=== PATIENT | female | born 1960 | race Two or more races ===

== ENCOUNTER 2016-12-26 08:23 | Inpatient (IN) | payer SELFPAY ==
[~2016-12-26] VITALS: Ht 160 cm; Wt 82.7 kg
--- NOTE | 2016-12-26 08:52 | PHYS DOC ---
Adult General Chief Complaint Chief Complaint: [facility] H[facility] Patient is a 56 year old Indonesian only speaking female presenting to the emergency department for evaluation of multiple complaints including headache and dizziness fatigue nausea vomiting. Nurse and family speaks Indonesian so I offered a language line per diem interpreter but patient was comfortably using the nurse to translate. Patient says that the pain started yesterday morning when she woke up and has gradually increased throughout yesterday and she had the pain all last night as well. She describes the pain as pounding and starts in the front of her head and goes back to her occipital region and has been constant and Advil [id number] has not helped. She has had several episodes of nonbloody nonbilious emesis and constant nausea. She says that she feels the room spinning but she is able to ambulate okay in the emergency department to an and from the bathroom. Patient reports that she gets frequent headaches but has never seen a doctor and been diagnosed with a headache disorder. She denies any unilateral weakness numbness tingling vision changes or difficulty speaking. Patient is in no obvious distress with normal vital signs. Review of Systems Review of Systems Constitutional: Denies fever or chills [] Eyes: Denies change in visual acuity, redness, or eye pain [] Respiratory: Denies cough or shortness of breath [] Cardiovascular: No additional information not addressed in HPI [] GI: Denies abdominal pain. + nausea, vomiting. No bloody stools or diarrhea [] : Denies dysuria or hematuria [] Musculoskeletal: Denies back pain or joint pain [] Integument: Denies rash or skin lesions [] Neurologic: + headache. No focal weakness. + dizziness sensory changes [] Current Medications Current Medications Current Medications Medications (Trade) Dose Ordered Sig/Rocky Start Time Stop Time Status Last Admin Dose Admin Diphenhydramine HCl (Benadryl) 25 mg 1X ONCE 12/26/16 09:30 12/26/16 09:31 DC 12/26/16 09:45 25 MG Ketorolac Tromethamine (Toradol) 30 mg 1X ONCE 12/26/16 09:30 12/26/16 09:31 DC 12/26/16 09:43 30 MG Meclizine HCl (Antivert) 25 mg 1X ONCE 12/26/16 09:00 12/26/16 09:13 DC 12/26/16 09:48 25 MG Prochlorperazine Edisylate (Compazine) 10 mg 1X ONCE 12/26/16 09:30 12/26/16 09:31 DC 12/26/16 09:46 10 MG Sodium Chloride 1,000 ml @ 1,000 mls/hr 1X ONCE 12/26/16 10:15 12/26/16 11:14 DC 12/26/16 10:44 1,000 MLS/HR Allergies Allergies Allergies Coded Allergies Type Severity Reaction Last Updated Verified No Known Drug Allergies 12/26/16 No Physical Exam Physical Exam Constitutional: Well developed, well nourished, no acute distress, non-toxic appearance. [] HENT: Normocephalic, atraumatic, bilateral external ears normal, oropharynx moist, no oral exudates, nose normal. [] Eyes: PERRLA, EOMI, conjunctiva normal, no discharge. [] Neck: Normal range of motion, no tenderness, supple, no stridor. [] Cardiovascular:Heart rate regular rhythm, no murmur [] Lungs & Thorax: Bilateral breath sounds clear to auscultation [] Abdomen: Bowel sounds normal, soft, no tenderness, no masses, no pulsatile masses. [] Skin: Warm, dry, no erythema, no rash. [] Back: No tenderness, no CVA tenderness. [] Extremities: No tenderness, no cyanosis, no clubbing, ROM intact, no edema. [] Neurologic: Alert and oriented X 3, normal motor function, normal sensory function, no focal deficits noted. [] Current Patient Data Vital Signs Vital Signs Date Time Temp Pulse Resp B/P (MAP) Pulse Ox O2 Delivery O2 Flow Rate FiO2 12/26/16 10:16 101 25 144/97 (113) 92 Room Air 12/26/16 08:52 99.2 99.2 Lab Values Laboratory Tests Test 12/26/16 09:30 12/26/16 09:45 12/26/16 09:50 Erythrocyte Sedimentation Rate 32 (0-25) H Lactic Acid Level 1.3 mmol/L (0.4-2.0) C-Reactive Protein, Quantitative 279.8 mg/L (0-3.3) H Urine Collection Type Unknown Urine Color Anila Urine Clarity Clear Urine pH 5.5 Urine Specific [place] 1.025 Urine Protein 100 mg/dL (NEG-TRACE) Urine Glucose (UA) Negative mg/dL (NEG) Urine Ketones (Stick) Trace mg/dL (NEG) Urine Blood Large (NEG) Urine Nitrite Negative (NEG) Urine Bilirubin Small (NEG) Urine Urobilinogen Dipstick 0.2 mg/dL (0.2 mg/dL) Urine Leukocyte Esterase Negative (NEG) Urine RBC 6-10 /HPF (0-2) Urine WBC 1-4 /HPF (0-4) Urine Squamous Epithelial Cells Mod /LPF Urine Bacteria Few /HPF (0-FEW) Urine Mucus Mod /LPF Urine Test Negative (NEG) Urine Opiates Screen Neg (NEG) Urine Methadone Screen Neg (NEG) Urine Barbiturates Neg (NEG) Urine Phencyclidine Screen Neg (NEG) Urine Amphetamine/Methamphetamine Neg (NEG) Urine Benzodiazepines Screen Neg (NEG) Urine Cocaine Screen Neg (NEG) Urine Cannabinoids Screen Neg (NEG) Urine Ethyl Alcohol Neg (NEG) White Blood Count 16.9 x10^3/uL (4.0-11.0) H Red Blood Count 5.21 x10^6/uL (3.50-5.40) Hemoglobin 14.5 g/dL (12.0-15.5) Hematocrit 42.3 % (36.0-47.0) Mean Corpuscular Volume 81 fL (79-100) Mean Corpuscular Hemoglobin 28 pg (25-35) Mean Corpuscular Hemoglobin Concent 34 g/dL (31-37) Red Cell Distribution Width 14.2 % (11.5-14.5) Platelet Count 295 x10^3/uL (140-400) Neutrophils (%) (Auto) 84 % (31-73) H Lymphocytes (%) (Auto) 10 % (24-48) L Monocytes (%) (Auto) 6 % (0-9) Eosinophils (%) (Auto) 0 % (0-3) Basophils (%) (Auto) 0 % (0-3) Neutrophils # (Auto) 14.2 x10^3uL (1.8-7.7) H Lymphocytes # (Auto) 1.7 x10^3/uL (1.0-4.8) Monocytes # (Auto) 1.0 x10^3/uL (0.0-1.1) Eosinophils # (Auto) 0.0 x10^3/uL (0.0-0.7) Basophils # (Auto) 0.1 x10^3/uL (0.0-0.2) Prothrombin Time 14.4 SEC (11.7-14.0) H Prothrombin Time INR 1.2 (0.8-1.1) H PTT 31 SEC (24-38) Sodium Level 134 mmol/L (136-145) L Potassium Level 3.1 mmol/L (3.5-5.1) L Chloride Level 94 mmol/L (98-107) L Carbon Dioxide Level 31 mmol/L (21-32) Anion Gap 9 (6-14) Blood Urea Nitrogen 14 mg/dL (7-20) Creatinine 1.0 mg/dL (0.6-1.0) Estimated GFR (Cockcroft-Gault) 57.8 BUN/Creatinine Ratio 14 (6-20) Glucose Level 103 mg/dL (70-99) H Calcium Level 8.1 mg/dL (8.5-10.1) L Magnesium Level 2.4 mg/dL (1.8-2.4) Total Bilirubin 0.7 mg/dL (0.2-1.0) Aspartate Amino Transferase (AST) 21 U/L (15-37) Alanine Aminotransferase (ALT) 27 U/L (14-59) Alkaline Phosphatase 108 U/L (46-116) Creatine Kinase 136 U/L (26-192) Troponin I Quantitative 0.074 ng/mL (0.000-0.055) QY-Nhh-M-Type Natriuretic Peptide 747 pg/mL (0-124) H Total Protein 7.5 g/dL (6.4-8.2) Albumin 3.3 g/dL (3.4-5.0) L Albumin/Globulin Ratio 0.8 (1.0-1.7) L Thyroid Stimulating Hormone (TSH) 2.545 uIU/mL (0.358-3.74) Salicylates Level < 2.8 mg/dL (2.8-20.0) L Salicylate Last Dose Date Unknown Salicylate Last Dose Time Unknown Acetaminophen Level < 2 mcg/ml (10-30) L Acetaminophen Last Dose Date Unknown Acetaminophen Last Dose Time Unknown Ethyl Alcohol Level < 10 mg/dL (0-10) Laboratory Tests 12/26/16 09:50 Laboratory Tests 12/26/16 09:50 EKG EKG Sinus tachycardia at 104 beats per minutes with leftward axis no obvious ST elevation or depression and normal T waves. Radiology/Procedures Radiology/Procedures EXAM: CT head without contrast. HISTORY: Headache, dizziness. TECHNIQUE: Computed tomography of the head was performed without intravenous contrast. COMPARISON: None. FINDINGS: There is no intracranial hemorrhage. Mild hypoattenuation within the periventricular white matter indicates mild chronic small vessel ischemic change. The ventricles are normal in size and position. The visualized paranasal sinuses appear clear. The orbits are unremarkable. The temporal bones are unremarkable. The calvarium reveals no suspicious lesions. IMPRESSION: 1. No acute intracranial findings. *One or more of the following individualized dose reduction techniques were utilized for this examination: 1. Automated exposure control. 2. Adjustment of the mA and/or kV according to patient size. 3. Use of iterative reconstruction technique. DICTATED and SIGNED BY: EKTA BELLE MD DATE: 12/26/16930 Impressions: Indication: Suspected meningitis Consent: Consent was obtained Procedure: The patient was placed in the sitting forward position and the appropriate landmarks were identified. The area was prepped and draped in the usual sterile fashion. Anesthesia was obtained using 4 mL of 1% lidocaine. A spinal needle was inserted at the L3-L4. Opening pressure was not obtained]. The stylet was then replaced and the needle was withdrawn. A sterile dressing was placed over the site and the patient was placed in the supine position. The patient tolerated the procedure well. Complications: none. Course & Med Decision Making Course & Med Decision Making She does not appear to be in severe distress as she is interactive and laughs during some of the conversation. Given language barrier and multitude of symptoms she will get workup have symptoms treated and then be reassessed. Patient was diaphoretic and her temperature was retaken and it was 99.9. The need to be tachycardic and she had leukocytosis with neutrophilic predominance. An LP was done which revealed no signs of meningitis however given she meets sepsis criteria and appears moderately ill she is admitted for IV antibiotics neurology and cardiology consultation. Patient aware and agreeable with plan. Dragon Disclaimer Dragon Disclaimer This electronic medical record was generated, in whole or in part, using a voice recognition dictation system. Departure Departure Impression: Primary Impression: Sepsis Additional Impressions: Headache Elevated C-reactive protein Elevated troponin I level Disposition: 09 ADMITTED INPATIENT Admitting Physician: Joann Galeano Condition: STABLE Referrals: NO PCP (PCP) Problem Qualifiers YASEMIN FARRAR DO Dec 26, 2016 08:52
[2016-12-26] MEDS ORDERED: MECLIZINE HCL 12.5 MG TABLET. PO ONE (09:00)
[2016-12-26] MEDS ORDERED: PROCHLORPERAZINE 10 MG/2 ML VIAL. IV ONE (09:30)
[2016-12-26] MEDS ORDERED: diphenhydrAMINE 50 MG/ML VIAL IVP ONE (09:30)
[2016-12-26] MEDS ORDERED: KETOROLAC TROMETHAMINE 30 MG/ML INJ. IV ONE (09:30)
--- NOTE | 2016-12-26 09:37 | RAD ---
EXAM: CT head without contrast. HISTORY: Headache, dizziness. TECHNIQUE: Computed tomography of the head was performed without intravenous contrast. COMPARISON: None. FINDINGS: There is no intracranial hemorrhage. Mild hypoattenuation within the periventricular white matter indicates mild chronic small vessel ischemic change. The ventricles are normal in size and position. The visualized paranasal sinuses appear clear. The orbits are unremarkable. The temporal bones are unremarkable. The calvarium reveals no suspicious lesions. IMPRESSION: 1. No acute intracranial findings. *One or more of the following individualized dose reduction techniques were utilized for this examination: 1. Automated exposure control. 2. Adjustment of the mA and/or kV according to patient size. 3. Use of iterative reconstruction technique.
[2016-12-26 10:03] LABS: BENZODIAZEPINES NEG (NEG); CANNABINOIDS NEG (NEG); COCAINE NEG (NEG); METHADONE NEG (NEG); OPIATES NEG (NEG); PHENCYCLIDINE NEG (NEG)
[2016-12-26 10:08] LABS: BASO # 0.1 x10^3/uL (0.0-0.2); BASO % 0 % (0-3); EOS % 0 % (0-3); HEMATOCRIT 42.3 % (36.0-47.0); HEMOGLOBIN 14.5 g/dL (12.0-15.5); LYMPH # 1.7 x10^3/uL (1.0-4.8); LYMPH % 10 % (24-48); MEAN CORPUSCULAR HEMOGLOBIN 28 pg (25-35); MEAN CORPUSCULAR HGB CONC 34 g/dL (31-37); MEAN CORPUSCULAR VOLUME 81 fL (79-100); MONO % 6 % (0-9); NEUT % 84 % (31-73); PLATELET COUNT 295 x10^3/uL (140-400); RED BLOOD COUNT 5.21 x10^6/uL (3.50-5.40); RED CELL DISTRIBUTION WIDTH 14.2 % (11.5-14.5); WHITE BLOOD COUNT 16.9 x10^3/uL (4.0-11.0)
[2016-12-26 10:09] LABS: BILIRUBIN,URINE SMALL (NEG); GLUCOSE,URINE NEGATIVE (NEG); NITRITE,URINE NEGATIVE (NEG); PH,URINE 5.5; PROTEIN,URINE 100 mg/dL (NEG-TRACE); UROBILINOGEN,URINE 0.2 mg/dL (0.2 mg/dL)
[2016-12-26 10:11] LABS: BARBITURATES NEG (NEG)
[2016-12-26] MEDS ORDERED: IV NORMAL SALINE 1000ML BAG 1,000 ML IV ONE ×2 (10:15→10:45)
[2016-12-26 10:17] LABS: CALCIUM 8.1 mg/dL (8.5-10.1); GFR 57.8; POTASSIUM 3.1 mmol/L (3.5-5.1)
[2016-12-26 10:18] LABS: INR 1.2 (0.8-1.1); PROTHROMBIN TIME PATIENT 14.4 SEC (11.7-14.0)
[2016-12-26 10:19] LABS: ETHANOL < 10 mg/dL (0-10)
[2016-12-26 10:20] LABS: NEG OBC UR NEG; POS OBC UR POS
[2016-12-26 10:23] LABS: ALBUMIN 3.3 g/dL (3.4-5.0); ALBUMIN/GLOBULIN RATIO 0.8 (1.0-1.7); MAGNESIUM 2.4 mg/dL (1.8-2.4); TOTAL BILIRUBIN 0.7 mg/dL (0.2-1.0); TOTAL PROTEIN 7.5 g/dL (6.4-8.2)
[2016-12-26 10:24] LABS: BACTERIA,URINE FEW /HPF (0-FEW); SQUAMOUS EPITHELIAL CELL,UR MOD /LPF
[2016-12-26] MEDS ORDERED: POTASSIUM CHLORIDE 20 MEQ TABLET.ER. PO ONE ×2 (10:30→14:00)
[2016-12-26] MEDS ORDERED: MIDAZOLAM HCL/PF 2 MG/2 ML VIAL. IV ONE (10:45)
[2016-12-26] MEDS ORDERED: ASPIRIN ENTERIC COATED 325 MG TABLET.DR. PO ONE (10:45)
[2016-12-26] MEDS ORDERED: VANCOMYCIN 1.25 GM in IV NORMAL SALINE 250ML 250 ML IV ONE (10:45)
[2016-12-26] MEDS ORDERED: VANCOMYCIN 1.75 GM in IV NORMAL SALINE 500ML BAG 500 ML IV ONE (11:00)
[2016-12-26] MEDS ORDERED: fentaNYL PF VIAL 100 MCG/2 ML VIAL IV PRN (11:15)
[2016-12-26] MEDS ORDERED: ONDANSETRON PF 4 MG/2 ML VIAL. IV PRN ×2 (11:15→15:30)
[2016-12-26 11:42] LABS: CSF PROTEIN 32.3 mg/dL (15.0-45.0)
[2016-12-26 12:02] LABS: CSF CLARITY CLEAR; CSF COLOR COLORLESS
--- NOTE | 2016-12-26 12:18 | ACF ---
Admit Criteria Forms Admit Criteria Forms Admit Criteria Forms SEVERE SEPSIS Clinical Indications for Admission to Inpatient Care (Place 'X' for any and all applicable criteria): Hospital admission is needed for appropriate care of the patient because of ANY ONE of the following: [X]I. Hemodynamic instability indicated by ANY ONE of the following(1)(2)(3)( 4)(5): [X]a. Vital sign abnormality not readily corrected by appropriate treatment within 12 to 24 hours indicated by ANY ONE of the following: [X]i) Tachycardia that persists despite appropriate treatment []ii) Hypotension that persists despite appropriate treatment []iii) Orthostatic vital sign changes that persist despite appropriate treatment []b. Vital sign abnormality that is severe indicated by ANY ONE of the following: []i. Inadequate perfusion indicated by ANY ONE of the following: []1) Lactic acidosis (greater than 2 mmol/L) []2) New abnormal capillary refill (greater than 3 seconds) []3) Reduced urine output []4) New altered mental status []5) Myocardial Ischemia []ii. Mean arterial pressure [A] less than 60 mm Hg []iii. Mean arterial pressure[A] less than 70 mm Hg after 30 minutes of appropriate treatment (eg, fluid resuscitation) []iv. Sustained heart rate greater than 120 beats per minute in adult []v. IV inotropic or vasopressor medication required to maintain adequate blood pressure or perfusion [X]II. Systemic or infectious condition causing severe symptoms or findings not responsive to emergency or observation care treatment (as appropriate) indicated by ANY ONE of the following: []a. Cardiac arrhythmias of immediate concern(1)(2)(3) []b. Severe endocrine disorder (eg, thyrotoxicosis, adrenal insufficiency)(4)(5) []c. Seizures (eg, new or recurrent)(6) []d. New-onset end organ failure or dysfunction as indicated by ANY ONE of the following: []i. Acute unexplained hypoxemia (eg, not from lung infection or chronic disease)(7)(8)(9) []ii. Acute renal failure as indicated by new onset of ANY ONE of the following(10)(11)(12)(13)(14): []1) 3-fold rise in serum creatinine from baseline []2) Serum creatinine greater than 4 mg/dL (354 micromoles/L) with acute rise greater than 0.5 mg/dL (44.2 micromoles/L) []3) Reduction of more than 75% in estimated glomerular filtration rate from baseline. []4) Estimated glomerular filtration rate less than 35 mL/min/1.73m2 ( 0.59 mL/sec/1.73m2) in child younger than 18 years. []5) Cessation of urine output indicated by ALL of the following: []A. Adequate volume status []B. Inadequate urine output as indicated by ANY ONE of the following: []a. Urine output less than 0.3 mL/kg/hr for 24 hours []b. Anuria (urine output less than 0.1 mL/kg/hr) for 12 hours []iii. Acute mental status changes(15) []iv. Acute hepatic failure (eg, plasma bilirubin greater than 4 mg/ dL (68 micromoles/L), new INR greater than 2.0)(16)(17) [X]e. Unmanageable nausea and vomiting(18) []f. New-onset or uncontrolled central diabetes insipidus(19)(20) []g. Clinically significant dehydration(18)(21) []h. Hypoglycemia(22) []i. Acidosis (pH less than 7.35) or alkalosis (pH greater than 7.45)( 22)(23) []j. Toxic drug level that indicates need for specific monitoring or treatment(24)(25) []k. Severe electrolyte abnormalities indicated by ALL of the following( 1)(2)(3): []i. Electrolytes and associated findings are not as expected for patient baseline or acceptable treatment effects. []ii. Severe abnormalities indicated by ANY ONE of the following: []1) Sodium less than 130 mEq/L (mmol/L) (new) []2) Sodium less than 135 mEq/L (mmol/L) with ANY ONE of the following: []A. Uncorrectable (to near normal or chronic baseline) after trial of outpatient and emergency treatment []B. Altered mental status []C. Seizures []D. Severe medical etiology requiring inpatient management (eg , heart failure, hypovolemia) []3) Sodium greater than 155 mEq/L (mmol/L) []4) Sodium greater than 150 mEq/L (mmol/L) with ANY ONE of the following: []A. Uncorrectable (to near normal or chronic baseline) with outpatient and emergency treatment []B. Altered mental status []C. Seizures []D. Severe medical etiology (eg, hypovolemia, diabetes insipidus) []5) Potassium less than 2.5 mEq/L (mmol/L) despite outpatient and emergency treatment []6) Potassium less than 3 mEq/L (mmol/L) with ANY ONE of the following : []A. Weakness []B. Cardiac abnormality (eg, arrhythmia, conduction disturbance ) []C. Cardiac ischemia []D. Ileus []E. Ongoing medical cause requiring inpatient management (eg, acute renal wasting or SIADH) []F. Other severe symptoms []7) Potassium greater than 6.5 mEq/L (mmol/L) []8) Potassium greater than 5 mEq/L (mmol/L) with ANY ONE of the following: []A. Uncorrectable (to near normal or chronic baseline) with outpatient and emergency treatment []B. Severe ECG findings[A] []C. Acute worsening of renal failure (creatinine greater than 2.5 mg/dL (221 micromoles/L) or significant elevation for age and size) []D. Severe weakness []E. Severe medical etiology (eg, hemolysis, infection, drug overdose) []9) Calcium less than 7 mg/dL (1.75 mmol/L) despite outpatient and emergency treatment(5) []10) Calcium less than 8 mg/dL (2 mmol/L) with significant symptoms or findings (eg, altered mental status, muscle spasms, seizures, breathing difficulty, cardiac abnormality (eg, arrhythmia or conduction disturbance))(5) []11) Calcium greater than 14 mg/dL (3.5 mmol/L)(5) []12) Calcium greater than 12 mg/dL (3 mmol/L) with ANY ONE of the following(5): []A. Uncorrectable (to near normal or chronic baseline) with outpatient and emergency treatment []B. Significant dehydration or hypovolemia as indicated by ALL of the following(3)(6)(7): []a. Not resolved with initial treatments []b. Clinically significant dehydration as indicated by ANY ONE of the following: [](1) Vomiting refractory to outpatient treatment (ie, precluding oral rehydration) [](2) Inability to drink [](3) Hypernatremia or other electrolyte abnormality unable to be corrected with outpatient and emergency treatment [](4) Failure to remain hydrated with outpatient therapy [](5) Reduced urine output [](6) Hypotension [](7) Serious cause for dehydration requiring acute hospitalization ( eg, bowel obstruction, increased intracranial pressure, infectious cause) [](8) Child with ANY ONE of the following(8): [](i) Severe abdominal tenderness [](ii) Adequate care not available at home [](iii) Severe dehydration (greater than 9% loss of body weight) []C. Significant symptoms or findings (eg, altered mental status , cardiac abnormality (eg, arrhythmia, conduction disturbance), malignant etiology requiring inpatient treatment) []13) Phosphorus less than 1 mg/dL (0.32 mmol/L) []14) Phosphorus less than 1.5 mg/dL (0.48 mmol/L) with ANY ONE of the following: []A. Patient unresponsive to outpatient and emergency treatment []B. Significant symptoms or findings (eg, weakness, altered mental status, breathing difficulty, seizures, rhabdomyolysis) []15) Phosphorus greater than 10 mg/dL (3.2 mmol/L) []16) Phosphorus greater than 4.5 mg/dL (1.45 mmol/L) (new) with ANY ONE of the following: []A. Severe medical etiology (eg, crush injury, acute renal failure) []B. Associated hypocalcemia with significant findings (eg, neurologic symptoms, altered mental status, muscle spasms, seizures, breathing difficulty, cardiac abnormality (eg, arrhythmia, conduction disturbance)) []16) Magnesium less than 1 mg/dL (0.41 mmol/L) []17) Magnesium less than 1.5 mg/dL (0.62 mmol/L) with ANY ONE of the following: []A. Patient unresponsive to outpatient and emergency treatment []B. Associated hypocalcemia with significant findings (eg, altered mental status, muscle spasms, seizures, breathing difficulty, cardiac abnormality (eg, arrhythmia, conduction disturbance)) []C. Associated hypokalemia (potassium less than 3 mEq/L (mmol/L )) with risk of arrhythmia []18) Magnesium greater than 4 mEq/L (2 mmol/L) []19) Magnesium greater than 2.5 mEq/L (1.25 mmol/L) with significant symptoms or findings (eg, weakness, altered mental status, cardiac abnormality (eg, arrhythmia, conduction disturbance), breathing difficulty, severe medical etiology (eg, renal failure, hypovolemia)) []20) Uric acid greater than 20 mg/dL (1190 micromoles/L)(9) []21) Uric acid greater than 8 mg/dL (476 micromoles/L) with significant symptoms or findings of tumor lysis syndrome (eg, creatinine greater than 1.5 times upper limit of normal, cardiac abnormality (eg , arrhythmia, conduction disturbance), seizure)(9) []III. High fever or other high-risk infection situation as indicated by ANY ONE of the following(26)(27)(28): []a. Outpatient and observation care antimicrobial treatment unavailable, not effective, or not appropriate []b. Documented bacteremia []c. Temperature greater than 104.9 degrees F (40.5 degrees C) (oral) []d. Temperature greater than 103.1 degrees F (39.5 degrees C) (oral) or less than 96.8 degrees F (36 degrees C) (rectal) that does not respond to emergency treatment and observation care [X]IV. High-risk febrile neutropenia[A] as indicated by ANY ONE of the following(29)(30)(31)(32): []a. Profound neutropenia[B] anticipated to extend for more than 7 days []b. Hemodynamic instability []c. Hypoxemia [X]d. Tachypnea []e. Altered mental status []f. New-onset abdominal pain []g. New-onset vomiting or diarrhea []h. Oral or gastrointestinal mucositis that interferes with swallowing or causes severe diarrhea []i. Focal infection (eg, cellulitis, pneumonia, central line or catheter infection, perirectal abscess) []j. Renal insufficiency (eg, GFR of less than 30 mL/min/1.73m2 (0.5 mL/sec /1.73m2)). []k. Severe liver dysfunction (transaminase levels greater than 5 times normal) []l. Platelet count less than 50,000/mm3 (50 x109/L)(33) []m. Leukemia or lymphoma induction therapy []n. Leukemia not in complete remission or with evidence of disease progression []o. Bone marrow transplant patient []p. Alemtuzumab being used for therapy []q. [employer]in[employer] Association for Supportive Care in Cancer (MASCC) Risk Index score of less than 21[C](33)(35). []V. Isolation required (eg, tuberculosis that requires isolation, Ebola infection)[D](36)(37)(38)(39)(40) []. Gangrene that requires treatment beyond emergency or observation level care(41)(42) []VII. Antitoxin administration and ongoing observation required (eg, tetanus, botulism)(43)(44) []. Suspected infection with rapid progression or severe symptoms as indicated by ANY ONE of the following(45): []a. Streptococcal or staphylococcal toxic shock(46) []b. Diphtheria(47) []c. Hantavirus(48) []d. Severe acute respiratory syndrome(8)(49) []e. Anthrax(50) []f. Ebola[D](36)(37)(38) []g. Necrotizing soft tissue infection(41)(42) []h. Plague(50) []i. Other suspected infection that requires care beyond emergency or observation level care []VII. Severe adverse drug or systemic toxin reaction as indicated by ANY ONE of the following(24): []a. Serotonin syndrome(51)(52) []b. Neuroleptic malignant syndrome(51)(52) []c. Cholinergic syndrome with severe symptoms (eg, bronchorrhea, weakness , mental status changes, seizures)(53) []d. Anticholinergic syndrome []e. Sympathetic syndrome with severe symptoms (eg, seizures, mental status changes, cardiac dysrhythmias) []f. Other severe adverse drug or systemic toxin reaction that remains after emergency or observation level care (as appropriate) []VIII. Allergic reaction with severe symptoms (not responsive to emergency or observation care treatment as appropriate), including ANY ONE of the following(54): []a. Airway edema (pharyngeal, epiglottic, or laryngeal edema) []b. Stridor []c. Respiratory failure []d. Bronchospasm []e. Hypotension []IX. Environmental emergency (not responsive to emergency or observation care treatment as appropriate) as indicated by ANY ONE of the following(55)(56): []a. Hyperthermia []b. Heat stroke []c. Heat exhaustion []d. Hypothermia (temperature less than 95 degrees F (35 degrees C) rectal) (57) []e. Electrocution(58) []X. Complications of transplanted organ (ie, not covered elsewhere)[E] indicated by ANY ONE of the following(59): []a. Acute graft rejection (or graft vs. host disease)[F] requiring inpatient management (eg, intravenous immunosuppression)(60)(61)(62)( 63) []b. Acute failure of transplanted organ necessitating inpatient care (eg, cannot be managed in other setting) []c. Infection requiring inpatient management (eg, Hemodynamic instability, need for intravenous antimicrobial treatment)(64)(65) []d. Other complication of transplanted organ requiring inpatient management []XI. Systemic or Infectious Condition condition, symptom, or finding for which emergency and observation care have failed or are not considered appropriate. See General Criteria: Observation Care, General Admission Criteria or Pediatric General Admission Criteria guideline as appropriate. (Contents from SEVERE SEPSIS and SYSTEMIC OR INFECTIOUS CONDITION clinical indications for admission to inpatient care have been integrated in this form) The original [facility] content created by [facility] has been revised. The portions of the content which have been revised are identified through the use of italic text or in bold and [facility] has neither reviewed nor approved the modified material. All other unmodified content is copyright [facility]. Please see references footnoted in the original [facility] edition 2016 WIL CARPIO Dec 26, 2016 12:18
[2016-12-26 13:28] VITALS: BP 113/71
--- NOTE | 2016-12-26 13:40 | PDOC2 ---
BOUBACAR ISLAS IMAGE EDITOR 12/26/16 1340: CARDIAC CONSULT DATE OF CONSULT Date of Consult DATE: 12/26/16 TIME: 13:40 REASON FOR CONSULT Reason for Consult: elevated troponin REFERRING PHYSICIAN Referring Physician: Dr. Derrell Yang SOURCE Source: Chart review, Patient (speaks Latvian) HISTORY OF PRESENT ILLNESS HISTORY OF PRESENT ILLNESS 56 year old female admitted through the ER with a 2 year history of headaches and today associated with dizziness, fatigue, nausea and vomiting. Hypokalemia POA. Troponin level of 0.074. No EKG for review. PAST MEDICAL HISTORY CENTRAL NERVOUS SYSTEM: Other (headaches) PAST SURGICAL HISTORY Past Surgical History: FAMILY HISTORY Family History: Family History Unknown SOCIAL HISTORY Smoke: No ALCOHOL: none Drugs: None CURRENT MEDICATIONS CURRENT MEDICATIONS Current Medications Medications (Trade) Dose Ordered Sig/[place] PRN Reason Start Time Stop Time Status Last Admin Dose Admin Meclizine HCl (Antivert) 25 mg 1X ONCE PO 12/26/16 09:00 12/26/16 09:13 DC 12/26/16 09:48 Diphenhydramine HCl (Benadryl) 25 mg 1X ONCE IVP 12/26/16 09:30 12/26/16 09:31 DC 12/26/16 09:45 Ketorolac Tromethamine (Toradol) 30 mg 1X ONCE IV 12/26/16 09:30 12/26/16 09:31 DC 12/26/16 09:43 Prochlorperazine Edisylate (Compazine) 10 mg 1X ONCE IV 12/26/16 09:30 12/26/16 09:31 DC 12/26/16 09:46 Sodium Chloride 1,000 ml @ 1,000 mls/hr 1X ONCE IV 12/26/16 10:15 12/26/16 11:14 DC 12/26/16 10:44 Potassium Chloride (Klor-Con) 40 meq 1X ONCE PO 12/26/16 10:30 12/26/16 10:31 DC 12/26/16 12:00 Ceftriaxone Sodium 2 gm/ Sodium Chloride 100 ml @ 200 mls/hr 1X ONCE IV 12/26/16 10:45 12/26/16 11:14 DC 12/26/16 10:44 Aspirin (Ecotrin) 325 mg 1X ONCE PO 12/26/16 10:45 12/26/16 10:46 DC 12/26/16 11:59 Midazolam HCl (Versed) 2 mg 1X ONCE IV 12/26/16 10:45 12/26/16 10:46 DC 12/26/16 11:01 Sodium Chloride 1,000 ml @ 1,000 mls/hr 1X ONCE IV 12/26/16 10:45 12/26/16 11:44 DC 12/26/16 12:09 Vancomycin HCl 1.75 gm/Sodium Chloride 500 ml @ 250 mls/hr 1X ONCE IV 12/26/16 11:00 12/26/16 12:59 DC 12/26/16 12:02 ALLERGIES ALLERGIES: Coded Allergies: No Known Drug Allergies (Unverified , 12/26/16) ROS Review of System see HPI PHYSICAL EXAM General: Alert, Cooperative, No acute distress HEENT: Atraumatic, PERRLA Lungs: Clear to auscultation Heart: Regular rate, Normal S1, Normal S2, No murmurs Abdomen: Normal bowel sounds, Soft Extremities: No edema, Normal pulses Skin: No rashes Neuro: Normal speech Psych/Mental Status: Mental status NL MUSCULOSKELETAL: No deformity VITALS VITALS Vital Signs Date Time Temp Pulse Resp B/P (MAP) Pulse Ox O2 Delivery O2 Flow Rate FiO2 12/26/16 13:28 98.9 84 18 113/71 (85) 97 Room Air 98.9 12/26/16 12:16 2.0 LABS Lab: Laboratory Tests Test 12/26/16 09:30 12/26/16 09:45 12/26/16 09:50 12/26/16 11:15 Erythrocyte Sedimentation Rate 32 (0-25) Lactic Acid Level 1.3 mmol/L (0.4-2.0) C-Reactive Protein, Quantitative 279.8 mg/L (0-3.3) Urine Collection Type Unknown Urine Color Anila Urine Clarity Clear Urine pH 5.5 Urine Specific [place] 1.025 Urine Protein 100 mg/dL (NEG-TRACE) Urine Glucose (UA) Negative mg/dL (NEG) Urine Ketones (Stick) Trace mg/dL (NEG) Urine Blood Large (NEG) Urine Nitrite Negative (NEG) Urine Bilirubin Small (NEG) Urine Urobilinogen Dipstick 0.2 mg/dL (0.2 mg/dL) Urine Leukocyte Esterase Negative (NEG) Urine RBC 6-10 /HPF (0-2) Urine WBC 1-4 /HPF (0-4) Urine Squamous Epithelial Cells Mod /LPF Urine Bacteria Few /HPF (0-FEW) Urine Mucus Mod /LPF Urine Test Negative (NEG) Urine Opiates Screen Neg (NEG) Urine Methadone Screen Neg (NEG) Urine Barbiturates Neg (NEG) Urine Phencyclidine Screen Neg (NEG) Urine Amphetamine/Methamphetamine Neg (NEG) Urine Benzodiazepines Screen Neg (NEG) Urine Cocaine Screen Neg (NEG) Urine Cannabinoids Screen Neg (NEG) Urine Ethyl Alcohol Neg (NEG) White Blood Count 16.9 x10^3/uL (4.0-11.0) Red Blood Count 5.21 x10^6/uL (3.50-5.40) Hemoglobin 14.5 g/dL (12.0-15.5) Hematocrit 42.3 % (36.0-47.0) Mean Corpuscular Volume 81 fL (79-100) Mean Corpuscular Hemoglobin 28 pg (25-35) Mean Corpuscular Hemoglobin Concent 34 g/dL (31-37) Red Cell Distribution Width 14.2 % (11.5-14.5) Platelet Count 295 x10^3/uL (140-400) Neutrophils (%) (Auto) 84 % (31-73) Lymphocytes (%) (Auto) 10 % (24-48) Monocytes (%) (Auto) 6 % (0-9) Eosinophils (%) (Auto) 0 % (0-3) Basophils (%) (Auto) 0 % (0-3) Neutrophils # (Auto) 14.2 x10^3uL (1.8-7.7) Lymphocytes # (Auto) 1.7 x10^3/uL (1.0-4.8) Monocytes # (Auto) 1.0 x10^3/uL (0.0-1.1) Eosinophils # (Auto) 0.0 x10^3/uL (0.0-0.7) Basophils # (Auto) 0.1 x10^3/uL (0.0-0.2) Prothrombin Time 14.4 SEC (11.7-14.0) Prothromb Time International Ratio 1.2 (0.8-1.1) Activated Partial Thromboplast Time 31 SEC (24-38) Sodium Level 134 mmol/L (136-145) Potassium Level 3.1 mmol/L (3.5-5.1) Chloride Level 94 mmol/L (98-107) Carbon Dioxide Level 31 mmol/L (21-32) Anion Gap 9 (6-14) Blood Urea Nitrogen 14 mg/dL (7-20) Creatinine 1.0 mg/dL (0.6-1.0) Estimated GFR (Cockcroft-Gault) 57.8 BUN/Creatinine Ratio 14 (6-20) Glucose Level 103 mg/dL (70-99) Calcium Level 8.1 mg/dL (8.5-10.1) Magnesium Level 2.4 mg/dL (1.8-2.4) Total Bilirubin 0.7 mg/dL (0.2-1.0) Aspartate Amino Transf (AST/SGOT) 21 U/L (15-37) Alanine Aminotransferase (ALT/SGPT) 27 U/L (14-59) Alkaline Phosphatase 108 U/L (46-116) Creatine Kinase 136 U/L (26-192) Troponin I Quantitative 0.074 ng/mL (0.000-0.055) ZY-Iiv-U-Type Natriuretic Peptide 747 pg/mL (0-124) Total Protein 7.5 g/dL (6.4-8.2) Albumin 3.3 g/dL (3.4-5.0) Albumin/Globulin Ratio 0.8 (1.0-1.7) Thyroid Stimulating Hormone (TSH) 2.545 uIU/mL (0.358-3.74) Salicylates Level < 2.8 mg/dL (2.8-20.0) Salicylate Last Dose Date Unknown Salicylate Last Dose Time Unknown Acetaminophen Level < 2 mcg/ml (10-30) Acetaminophen Last Dose Date Unknown Acetaminophen Last Dose Time Unknown Ethyl Alcohol Level < 10 mg/dL (0-10) CSF Color Colorless CSF Clarity Clear CSF WBC 0 CSF RBC 1 CSF Glucose 68 mg/dL (37-70) CSF Total Protein 32.3 mg/dL (15.0-45.0) EKG EKG none ASSESSMENT/PLAN ASSESSMENT/PLAN 1. trivial elevation in troponin level not consistent with AMI echo to evaluate for WMA 2. headaches per neuro Problems: BEATRIZ PERKINS MD 12/26/16 2962: CARDIAC CONSULT ALLERGIES ALLERGIES: Coded Allergies: No Known Drug Allergies (Unverified , 12/26/16) ASSESSMENT/PLAN ASSESSMENT/PLAN Patient seen and examined. Agree with CHOPPER FEEDER's assessment and plan. Troponin level very slightly elevated but EKG without acute changes. We will obtain 2-D echo to assess LV function and rule out wall motion abnormalities. Continue workup and treatment of headaches per neurology team. Thank you for your consultation. Problems: BOUBACAR ISLAS APRN Dec 26, 2016 13:40 BEATRIZ PERKINS MD Dec 26, 2016 17:35
[2016-12-26 15:00] VITALS: BP 123/84
[2016-12-26] MEDS ORDERED: DOCUSATE SODIUM 100 MG CAPSULE. PO PRN (15:30)
[2016-12-26] MEDS ORDERED: hydrALAZINE 20 MG/ML VIAL. IVP PRN (15:30)
[2016-12-26] MEDS ORDERED: PIP/TAZO PER PHARMACY MC PRN (15:30)
[2016-12-26] MEDS ORDERED: ACETAMINOPHEN 325 MG TABLET. PO PRN (15:30)
[2016-12-26] MEDS ORDERED: IV NORMAL SALINE 1000ML BAG 1,000 ML IV SCH (15:30)
--- NOTE | 2016-12-26 15:39 | PDOC1 ---
History and Physical Date of Admission Date of Admission 12/26/16 Identification/Chief Complaint Chief Complaint headache, fever Problems: Source Source: Caregiver, Chart review, Patient History of Present Illness History of Present Illness Patient is a 56 year old Guatem[place] only speaking female presenting to the emergency department for evaluation of multiple complaints including headache and dizziness fatigue nausea vomiting for 1day. Pt speaks anguillan, her sone at bedside helped to translate, and ER nurse helped to translate to ERP. Pt started to feel sick with headache at forehead, with N/V yesterday with non bloody and nonbilious emesis, watery diarrhea, mild cough, fever, but T not known. The headache got worse today and came to ER. as per ERP, She says that she feels the room spinning but she is able to ambulate okay in the emergency department to an and from the bathroom. Patient reports that she gets frequent headaches but has never seen a doctor and been diagnosed with a headache disorder. She denies any unilateral weakness numbness tingling vision changes or difficulty speaking. Patient is in no obvious distress with normal vital signs. LP done in ER, CT neg. high WBC, HIGH ESR. DENIES recent travel and sick contact.. denies sob, dysuria or frequency. Past Medical History Past Medical History none Past Surgical History Past Surgical History: Family History Family History: No Significant Social History Smoke: No ALCOHOL: none Drugs: None Current Problem List Problem List Problems Medical Problems: (1) Elevated C-reactive protein Status: Acute (2) Elevated troponin I level Status: Acute (3) Headache Status: Acute (4) Sepsis Status: Acute Current Medications Current Medications Current Medications Medications (Trade) Dose Ordered Sig/Rocky Start Time Stop Time Status Last Admin Dose Admin Aspirin (Ecotrin) 325 mg 1X ONCE 12/26/16 10:45 12/26/16 10:46 DC 12/26/16 11:59 325 MG Ceftriaxone Sodium 2 gm/ Sodium Chloride 100 ml @ 200 mls/hr 1X ONCE 12/26/16 10:45 12/26/16 11:14 DC 12/26/16 10:44 200 MLS/HR Diphenhydramine HCl (Benadryl) 25 mg 1X ONCE 12/26/16 09:30 12/26/16 09:31 DC 12/26/16 09:45 25 MG Fentanyl Citrate (Fentanyl 2ml Vial) 50 mcg PRN Q2HR PRN 12/26/16 11:15 12/27/16 11:14 Ketorolac Tromethamine (Toradol) 30 mg 1X ONCE 12/26/16 09:30 12/26/16 09:31 DC 12/26/16 09:43 30 MG Meclizine HCl (Antivert) 25 mg 1X ONCE 12/26/16 09:00 12/26/16 09:13 DC 12/26/16 09:48 25 MG Midazolam HCl (Versed) 2 mg 1X ONCE 12/26/16 10:45 12/26/16 10:46 DC 12/26/16 11:01 2 MG Ondansetron HCl (Zofran) 4 mg PRN Q8HRS PRN 12/26/16 11:15 12/27/16 11:14 Potassium Chloride (Klor-Con) 40 meq 1X ONCE 12/26/16 14:00 12/26/16 14:01 DC 12/26/16 14:26 40 MEQ Prochlorperazine Edisylate (Compazine) 10 mg 1X ONCE 12/26/16 09:30 12/26/16 09:31 DC 12/26/16 09:46 10 MG Sodium Chloride 1,000 ml @ 1,000 mls/hr 1X ONCE 12/26/16 10:45 12/26/16 11:44 DC 12/26/16 12:09 1,000 MLS/HR Vancomycin HCl 1.25 gm/Sodium Chloride 250 ml @ 166.667 mls/hr 1X ONCE 12/26/16 10:45 12/26/16 12:14 UNV Vancomycin HCl 1.75 gm/Sodium Chloride 500 ml @ 250 mls/hr 1X ONCE 12/26/16 11:00 12/26/16 12:59 DC 12/26/16 12:02 250 MLS/HR Allergies Allergies Allergies Coded Allergies Type Severity Reaction Last Updated Verified No Known Drug Allergies 12/26/16 No ROS Review of System CONSTITUTIONAL: No fever or chills EYES: No recent changes SKIN: No rash or itching CARDIOVASCULAR: No chest pain, syncope, palpitations, or edema RESPIRATORY: No SOB or cough GASTROINTESTINAL: No nausea, vomiting or abdominal pain NEUROLOGICAL: No headaches or weakness ENDOCRINE: No cold or heat intolerance GENITOURINARY: No urgency or frequency of urination MUSCULOSKELETAL: No back pain or joint pain LYMPHATICS: No enlarged lymph nodes PSYCHIATRIC: No anxiety or depression Physical Exam Physical Exam GEN.: No apparent distress. Alert and oriented. sleepy in ER now. HEENT: Head is normocephalic, atraumatic NECK: Supple. LUNGS: Clear to auscultation. HEART: RRR, S1, S2 present. Peripheral pulses intact ABDOMEN: Soft, nontender. Positive bowel sounds. EXTREMITIES: Without any cyanosis. NEUROLOGIC: Normal speech, normal tone PSYCHIATRIC: Normal affect, normal mood. SKIN: No ulcerations Vitals Vitals Vital Signs Date Time Temp Pulse Resp B/P (MAP) Pulse Ox O2 Delivery O2 Flow Rate FiO2 12/26/16 15:00 97.8 88 18 123/84 (97) 94 Room Air 97.8 12/26/16 13:00 2.0 Labs Labs Laboratory Tests Test 12/26/16 09:30 12/26/16 09:45 12/26/16 09:50 12/26/16 11:15 Erythrocyte Sedimentation Rate 32 (0-25) Lactic Acid Level 1.3 mmol/L (0.4-2.0) C-Reactive Protein, Quantitative 279.8 mg/L (0-3.3) Urine Collection Type Unknown Urine Color Anila Urine Clarity Clear Urine pH 5.5 Urine Specific [place] 1.025 Urine Protein 100 mg/dL (NEG-TRACE) Urine Glucose (UA) Negative mg/dL (NEG) Urine Ketones (Stick) Trace mg/dL (NEG) Urine Blood Large (NEG) Urine Nitrite Negative (NEG) Urine Bilirubin Small (NEG) Urine Urobilinogen Dipstick 0.2 mg/dL (0.2 mg/dL) Urine Leukocyte Esterase Negative (NEG) Urine RBC 6-10 /HPF (0-2) Urine WBC 1-4 /HPF (0-4) Urine Squamous Epithelial Cells Mod /LPF Urine Bacteria Few /HPF (0-FEW) Urine Mucus Mod /LPF Urine Test Negative (NEG) Urine Opiates Screen Neg (NEG) Urine Methadone Screen Neg (NEG) Urine Barbiturates Neg (NEG) Urine Phencyclidine Screen Neg (NEG) Urine Amphetamine/Methamphetamine Neg (NEG) Urine Benzodiazepines Screen Neg (NEG) Urine Cocaine Screen Neg (NEG) Urine Cannabinoids Screen Neg (NEG) Urine Ethyl Alcohol Neg (NEG) White Blood Count 16.9 x10^3/uL (4.0-11.0) Red Blood Count 5.21 x10^6/uL (3.50-5.40) Hemoglobin 14.5 g/dL (12.0-15.5) Hematocrit 42.3 % (36.0-47.0) Mean Corpuscular Volume 81 fL (79-100) Mean Corpuscular Hemoglobin 28 pg (25-35) Mean Corpuscular Hemoglobin Concent 34 g/dL (31-37) Red Cell Distribution Width 14.2 % (11.5-14.5) Platelet Count 295 x10^3/uL (140-400) Neutrophils (%) (Auto) 84 % (31-73) Lymphocytes (%) (Auto) 10 % (24-48) Monocytes (%) (Auto) 6 % (0-9) Eosinophils (%) (Auto) 0 % (0-3) Basophils (%) (Auto) 0 % (0-3) Neutrophils # (Auto) 14.2 x10^3uL (1.8-7.7) Lymphocytes # (Auto) 1.7 x10^3/uL (1.0-4.8) Monocytes # (Auto) 1.0 x10^3/uL (0.0-1.1) Eosinophils # (Auto) 0.0 x10^3/uL (0.0-0.7) Basophils # (Auto) 0.1 x10^3/uL (0.0-0.2) Prothrombin Time 14.4 SEC (11.7-14.0) Prothromb Time International Ratio 1.2 (0.8-1.1) Activated Partial Thromboplast Time 31 SEC (24-38) Sodium Level 134 mmol/L (136-145) Potassium Level 3.1 mmol/L (3.5-5.1) Chloride Level 94 mmol/L (98-107) Carbon Dioxide Level 31 mmol/L (21-32) Anion Gap 9 (6-14) Blood Urea Nitrogen 14 mg/dL (7-20) Creatinine 1.0 mg/dL (0.6-1.0) Estimated GFR (Cockcroft-Gault) 57.8 BUN/Creatinine Ratio 14 (6-20) Glucose Level 103 mg/dL (70-99) Calcium Level 8.1 mg/dL (8.5-10.1) Magnesium Level 2.4 mg/dL (1.8-2.4) Total Bilirubin 0.7 mg/dL (0.2-1.0) Aspartate Amino Transf (AST/SGOT) 21 U/L (15-37) Alanine Aminotransferase (ALT/SGPT) 27 U/L (14-59) Alkaline Phosphatase 108 U/L (46-116) Creatine Kinase 136 U/L (26-192) Troponin I Quantitative 0.074 ng/mL (0.000-0.055) AP-Eor-U-Type Natriuretic Peptide 747 pg/mL (0-124) Total Protein 7.5 g/dL (6.4-8.2) Albumin 3.3 g/dL (3.4-5.0) Albumin/Globulin Ratio 0.8 (1.0-1.7) Thyroid Stimulating Hormone (TSH) 2.545 uIU/mL (0.358-3.74) Salicylates Level < 2.8 mg/dL (2.8-20.0) Salicylate Last Dose Date Unknown Salicylate Last Dose Time Unknown Acetaminophen Level < 2 mcg/ml (10-30) Acetaminophen Last Dose Date Unknown Acetaminophen Last Dose Time Unknown Ethyl Alcohol Level < 10 mg/dL (0-10) CSF Color Colorless CSF Clarity Clear CSF WBC 0 CSF RBC 1 CSF Glucose 68 mg/dL (37-70) CSF Total Protein 32.3 mg/dL (15.0-45.0) Laboratory Tests Test 12/26/16 09:30 12/26/16 09:45 12/26/16 09:50 12/26/16 11:15 Erythrocyte Sedimentation Rate 32 (0-25) Lactic Acid Level 1.3 mmol/L (0.4-2.0) C-Reactive Protein, Quantitative 279.8 mg/L (0-3.3) Urine Collection Type Unknown Urine Color Anila Urine Clarity Clear Urine pH 5.5 Urine Specific [place] 1.025 Urine Protein 100 mg/dL (NEG-TRACE) Urine Glucose (UA) Negative mg/dL (NEG) Urine Ketones (Stick) Trace mg/dL (NEG) Urine Blood Large (NEG) Urine Nitrite Negative (NEG) Urine Bilirubin Small (NEG) Urine Urobilinogen Dipstick 0.2 mg/dL (0.2 mg/dL) Urine Leukocyte Esterase Negative (NEG) Urine RBC 6-10 /HPF (0-2) Urine WBC 1-4 /HPF (0-4) Urine Squamous Epithelial Cells Mod /LPF Urine Bacteria Few /HPF (0-FEW) Urine Mucus Mod /LPF Urine Test Negative (NEG) Urine Opiates Screen Neg (NEG) Urine Methadone Screen Neg (NEG) Urine Barbiturates Neg (NEG) Urine Phencyclidine Screen Neg (NEG) Urine Amphetamine/Methamphetamine Neg (NEG) Urine Benzodiazepines Screen Neg (NEG) Urine Cocaine Screen Neg (NEG) Urine Cannabinoids Screen Neg (NEG) Urine Ethyl Alcohol Neg (NEG) White Blood Count 16.9 x10^3/uL (4.0-11.0) Red Blood Count 5.21 x10^6/uL (3.50-5.40) Hemoglobin 14.5 g/dL (12.0-15.5) Hematocrit 42.3 % (36.0-47.0) Mean Corpuscular Volume 81 fL (79-100) Mean Corpuscular Hemoglobin 28 pg (25-35) Mean Corpuscular Hemoglobin Concent 34 g/dL (31-37) Red Cell Distribution Width 14.2 % (11.5-14.5) Platelet Count 295 x10^3/uL (140-400) Neutrophils (%) (Auto) 84 % (31-73) Lymphocytes (%) (Auto) 10 % (24-48) Monocytes (%) (Auto) 6 % (0-9) Eosinophils (%) (Auto) 0 % (0-3) Basophils (%) (Auto) 0 % (0-3) Neutrophils # (Auto) 14.2 x10^3uL (1.8-7.7) Lymphocytes # (Auto) 1.7 x10^3/uL (1.0-4.8) Monocytes # (Auto) 1.0 x10^3/uL (0.0-1.1) Eosinophils # (Auto) 0.0 x10^3/uL (0.0-0.7) Basophils # (Auto) 0.1 x10^3/uL (0.0-0.2) Prothrombin Time 14.4 SEC (11.7-14.0) Prothromb Time International Ratio 1.2 (0.8-1.1) Activated Partial Thromboplast Time 31 SEC (24-38) Sodium Level 134 mmol/L (136-145) Potassium Level 3.1 mmol/L (3.5-5.1) Chloride Level 94 mmol/L (98-107) Carbon Dioxide Level 31 mmol/L (21-32) Anion Gap 9 (6-14) Blood Urea Nitrogen 14 mg/dL (7-20) Creatinine 1.0 mg/dL (0.6-1.0) Estimated GFR (Cockcroft-Gault) 57.8 BUN/Creatinine Ratio 14 (6-20) Glucose Level 103 mg/dL (70-99) Calcium Level 8.1 mg/dL (8.5-10.1) Magnesium Level 2.4 mg/dL (1.8-2.4) Total Bilirubin 0.7 mg/dL (0.2-1.0) Aspartate Amino Transf (AST/SGOT) 21 U/L (15-37) Alanine Aminotransferase (ALT/SGPT) 27 U/L (14-59) Alkaline Phosphatase 108 U/L (46-116) Creatine Kinase 136 U/L (26-192) Troponin I Quantitative 0.074 ng/mL (0.000-0.055) DA-Hut-B-Type Natriuretic Peptide 747 pg/mL (0-124) Total Protein 7.5 g/dL (6.4-8.2) Albumin 3.3 g/dL (3.4-5.0) Albumin/Globulin Ratio 0.8 (1.0-1.7) Thyroid Stimulating Hormone (TSH) 2.545 uIU/mL (0.358-3.74) Salicylates Level < 2.8 mg/dL (2.8-20.0) Salicylate Last Dose Date Unknown Salicylate Last Dose Time Unknown Acetaminophen Level < 2 mcg/ml (10-30) Acetaminophen Last Dose Date Unknown Acetaminophen Last Dose Time Unknown Ethyl Alcohol Level < 10 mg/dL (0-10) CSF Color Colorless CSF Clarity Clear CSF WBC 0 CSF RBC 1 CSF Glucose 68 mg/dL (37-70) CSF Total Protein 32.3 mg/dL (15.0-45.0) VTE Prophylaxis Ordered VTE Prophylaxis Devices: Yes VTE Pharmacological Prophylaxi: Yes Assessment/Plan Assessment/Plan 1. headache, not clear etiology 2. possible sepsis, not clear etiology 3. leukocytosis 4. hypokalemia 5. N/V with diarrhea 6. elevated troponin, 2/2 sepsis likely plan: fu with neuro, id, card cx pending check CXR LP neg so far tripp duo for now ivf check stool cx, cdiff clear liquid for now pain control cycle CE replete SILVESTRE GOMEZ MD Dec 26, 2016 15:38
[2016-12-26] MEDS: VANCOMYCIN PER PHARMACY MC PRN (15:42)
--- NOTE | 2016-12-26 16:18 | PDOC2 ---
NEUROLOGY CONSULT Date of Admission Date of Admission DATE: 12/26/16 TIME: 16:10 Reason for Consult Reason for Consult: IMPRESSION: Worsening of chronic headache. Chronic headaches x 2 years. Obesity. Has not seen PCP for > 2 years. RECOMMENDATIONS/PLAN: Pain control. Brain MRI with contrast. Weight reduction. Lab: see orders. HISTORY OF THE PRESENT ILLNESS: 56-y-old [place] origin female patient with Hx of chronic headaches for more than 2 years. She has about 8 or more obvious headaches a month in her entire head described as compression and sharp pain lasting for several hours each time after taking OTC to stop pain. She has nausea sometimes but no vomiting. No symptoms of decreased vision, diplopia. ataxia, numbness or weakness. She has not seen PCP for more than 2 years. PAST MEDICAL HISTORY: Unknown due to not seen PCP. PAST SURGERY HISTORY: . ALLERGY: Unknown MEDICATIONS: OTC FAMILY HISTORY: Non contributory. SOCIAL HISTORY: Lives with her familt at home. Denies smoking, drinking, and illicit drug use. REVIEW OF SYSTEMS: Constitutional: Obesity. Head: No traumatic brain or head injury. Skin: No edema, or rash. Ear: No infection. Eyes: No vision loss or color blindness. Nose: No bleeding or purulent discharges. Hearing: No hearing decrease. Neck: No injury. Breast: No history of cancer, masses,or discharges. Cardiac: No [place], arrhythmia. Pulmonary: No pneumonia or COPD. GI: No GI ulcer, GI bleeding. Urinary/genital: UTI. Endocrinologic: Obesity. Skeletomuscular: No muscular atrophy, deformity. Neurological: see HP. Psychiatric: Denies drug use/abuse. Otherwise, not [id number] review of systems. PHYSICAL EXAMINATION: General appearance is in subacute distress. HEENT: Normocephalic and nontraumatic. Eyes, nose, ears, and throat are unremarkable. Neck is supple. No lymphadenopathy. No bruits are heard over the carotid artery. No crepitus. Cardiovascular: S1, S2, regular rate and rhythm. Pulmonary: Clear to auscultation bilaterally. Abdomen: Bowel sounds are positive. Abdomen is soft, nontender, and nondistended. Extremities: No rash, lesions, or edema. No restriction of range of motion NEUROLOGICAL EXAMINATION: Alert Oriented to time, place and person. PERRL. EOMI. CN: no focal findings. Muscle tone: within normal. Muscle strength: 5 DTR: 2 Plantar reflex: Flexor response bilaterally Gait: not examined in bed. Sensory exam: no abnormal findings. No cerebellar signs elicited. F-T-N test fine. Current Medications Current Medications Current Medications Meclizine HCl (Antivert) 25 mg 1X ONCE PO Last administered on 12/26/16 09:48 ; Start 12/26/16 at 09:00; Stop 12/26/16 at 09:13; Status DC Diphenhydramine HCl (Benadryl) 25 mg 1X ONCE IVP Last administered on 09:45; Start 12/26/16 at 09:30; Stop 12/26/16 at 09:31; Status DC Ketorolac Tromethamine (Toradol) 30 mg 1X ONCE IV Last administered on 09:43; Start 12/26/16 at 09:30; Stop 12/26/16 at 09:31; Status DC Prochlorperazine Edisylate (Compazine) 10 mg 1X ONCE IV Last administered on 09:46; Start 12/26/16 at 09:30; Stop 12/26/16 at 09:31; Status DC Sodium Chloride 1,000 ml @ 1,000 mls/hr 1X ONCE IV Last administered on 10:44; Start 12/26/16 at 10:15; Stop 12/26/16 at 11:14; Status DC Potassium Chloride (Klor-Con) 40 meq 1X ONCE PO Last administered on 12:00; Start 12/26/16 at 10:30; Stop 12/26/16 at 10:31; Status DC Ceftriaxone Sodium 2 gm/ Sodium Chloride 100 ml @ 200 mls/hr 1X ONCE IV Last administered on 12/26/16 10:44; Start 12/26/16 at 10:45; Stop 12/26/16 at 11:14 ; Status DC Aspirin (Ecotrin) 325 mg 1X ONCE PO Last administered on 12/26/16 11:59; Start 12/26/16 at 10:45; Stop 12/26/16 at 10:46; Status DC Midazolam HCl (Versed) 2 mg 1X ONCE IV Last administered on 12/26/16 11:01; Start 12/26/16 at 10:45; Stop 12/26/16 at 10:46; Status DC Sodium Chloride 1,000 ml @ 1,000 mls/hr 1X ONCE IV Last administered on 12:09; Start 12/26/16 at 10:45; Stop 12/26/16 at 11:44; Status DC Vancomycin HCl 1.25 gm/Sodium Chloride 250 ml @ 166.667 mls/hr 1X ONCE IV ; Start 12/26/16 at 10:45; Stop 12/26/16 at 12:14; Status UNV Vancomycin HCl 1.75 gm/Sodium Chloride 500 ml @ 250 mls/hr 1X ONCE IV Last administered on 12/26/16 12:02; Start 12/26/16 at 11:00; Stop 12/26/16 at 12:59 ; Status DC Ondansetron HCl (Zofran) 4 mg PRN Q8HRS PRN IV NAUSEA/VOMITING; Start 12/26/16 at 11:15; Stop 12/27/16 at 11:14 Fentanyl Citrate (Fentanyl 2ml Vial) 50 mcg PRN Q2HR PRN IV PAIN; Start at 11:15; Stop 12/27/16 at 11:14 Potassium Chloride (Klor-Con) 40 meq 1X ONCE PO Last administered on 14:26; Start 12/26/16 at 14:00; Stop 12/26/16 at 14:01; Status DC Sodium Chloride 1,000 ml @ 100 mls/hr Q10H IV ; Start 12/26/16 at 15:30 Acetaminophen (Tylenol) 650 mg PRN Q6HRS PRN PO FEVER; Start 12/26/16 at 15:30 Ondansetron HCl (Zofran) 4 mg PRN Q6HRS PRN IV NAUSEA/VOMITING; Start 12/26/16 at 15:30 Morphine Sulfate 2 mg PRN Q2HR PRN IV PAIN; Start 12/26/16 at 15:30 Tramadol HCl (Ultram) 50 mg PRN Q6HRS PRN PO PAIN; Start 12/26/16 at 15:30 Hydralazine HCl (Apresoline) 10 mg PRN Q4HRS PRN IVP ELEVATED BP, SEE COMMENTS ; Start 12/26/16 at 15:30 Docusate Sodium (Colace) 100 mg PRN DAILY PRN PO CONSTIPATION; Start 12/26/16 at 15:30 Vancomycin HCl (Vanco Per Pharmacy) 1 each PRN DAILY PRN MC SEE COMMENTS Last administered on 12/26/16t 15:42; Start 12/26/16 at 15:30 Piperacillin Sod/ Tazobactam Sod 4.5 gm/Sodium Chloride 100 ml @ 200 mls/hr Q6HRS IV ; Start 12/26/16 at 16:00 Piperacillin Sod/ Tazobactam Sod (Zosyn Per Pharmacy) 1 each PRN DAILY PRN MC SEE COMMENTS; Start 12/26/16 at 15:30 Vancomycin HCl 1.25 gm/Sodium Chloride 250 ml @ 166.667 mls/hr Q12H IV ; Start 12/26/16 at 23:00 Enoxaparin Sodium (Lovenox 40mg Syringe) 40 mg Q24H SQ ; Start 12/26/16 at 16:00 Vancomycin HCl 1 each 1X ONCE MC ; Start 12/27/16 at 22:30; Stop 12/27/16 at 22 :31 Allergies Allergies: Coded Allergies: No Known Drug Allergies (Unverified , 12/26/16) Vitals VITALS Vital Signs Date Time Temp Pulse Resp B/P (MAP) Pulse Ox O2 Delivery O2 Flow Rate FiO2 12/26/16 15:00 97.8 88 18 123/84 (97) 94 Room Air 97.8 12/26/16 13:00 2.0 Labs Labs Laboratory Tests Test 12/26/16 09:30 12/26/16 09:45 12/26/16 09:50 12/26/16 11:15 Erythrocyte Sedimentation Rate 32 (0-25) Lactic Acid Level 1.3 mmol/L (0.4-2.0) C-Reactive Protein, Quantitative 279.8 mg/L (0-3.3) Urine Collection Type Unknown Urine Color Anila Urine Clarity Clear Urine pH 5.5 Urine Specific [place] 1.025 Urine Protein 100 mg/dL (NEG-TRACE) Urine Glucose (UA) Negative mg/dL (NEG) Urine Ketones (Stick) Trace mg/dL (NEG) Urine Blood Large (NEG) Urine Nitrite Negative (NEG) Urine Bilirubin Small (NEG) Urine Urobilinogen Dipstick 0.2 mg/dL (0.2 mg/dL) Urine Leukocyte Esterase Negative (NEG) Urine RBC 6-10 /HPF (0-2) Urine WBC 1-4 /HPF (0-4) Urine Squamous Epithelial Cells Mod /LPF Urine Bacteria Few /HPF (0-FEW) Urine Mucus Mod /LPF Urine Test Negative (NEG) Urine Opiates Screen Neg (NEG) Urine Methadone Screen Neg (NEG) Urine Barbiturates Neg (NEG) Urine Phencyclidine Screen Neg (NEG) Urine Amphetamine/Methamphetamine Neg (NEG) Urine Benzodiazepines Screen Neg (NEG) Urine Cocaine Screen Neg (NEG) Urine Cannabinoids Screen Neg (NEG) Urine Ethyl Alcohol Neg (NEG) White Blood Count 16.9 x10^3/uL (4.0-11.0) Red Blood Count 5.21 x10^6/uL (3.50-5.40) Hemoglobin 14.5 g/dL (12.0-15.5) Hematocrit 42.3 % (36.0-47.0) Mean Corpuscular Volume 81 fL (79-100) Mean Corpuscular Hemoglobin 28 pg (25-35) Mean Corpuscular Hemoglobin Concent 34 g/dL (31-37) Red Cell Distribution Width 14.2 % (11.5-14.5) Platelet Count 295 x10^3/uL (140-400) Neutrophils (%) (Auto) 84 % (31-73) Lymphocytes (%) (Auto) 10 % (24-48) Monocytes (%) (Auto) 6 % (0-9) Eosinophils (%) (Auto) 0 % (0-3) Basophils (%) (Auto) 0 % (0-3) Neutrophils # (Auto) 14.2 x10^3uL (1.8-7.7) Lymphocytes # (Auto) 1.7 x10^3/uL (1.0-4.8) Monocytes # (Auto) 1.0 x10^3/uL (0.0-1.1) Eosinophils # (Auto) 0.0 x10^3/uL (0.0-0.7) Basophils # (Auto) 0.1 x10^3/uL (0.0-0.2) Prothrombin Time 14.4 SEC (11.7-14.0) Prothromb Time International Ratio 1.2 (0.8-1.1) Activated Partial Thromboplast Time 31 SEC (24-38) Sodium Level 134 mmol/L (136-145) Potassium Level 3.1 mmol/L (3.5-5.1) Chloride Level 94 mmol/L (98-107) Carbon Dioxide Level 31 mmol/L (21-32) Anion Gap 9 (6-14) Blood Urea Nitrogen 14 mg/dL (7-20) Creatinine 1.0 mg/dL (0.6-1.0) Estimated GFR (Cockcroft-Gault) 57.8 BUN/Creatinine Ratio 14 (6-20) Glucose Level 103 mg/dL (70-99) Calcium Level 8.1 mg/dL (8.5-10.1) Magnesium Level 2.4 mg/dL (1.8-2.4) Total Bilirubin 0.7 mg/dL (0.2-1.0) Aspartate Amino Transf (AST/SGOT) 21 U/L (15-37) Alanine Aminotransferase (ALT/SGPT) 27 U/L (14-59) Alkaline Phosphatase 108 U/L (46-116) Creatine Kinase 136 U/L (26-192) Troponin I Quantitative 0.074 ng/mL (0.000-0.055) KO-Bkb-V-Type Natriuretic Peptide 747 pg/mL (0-124) Total Protein 7.5 g/dL (6.4-8.2) Albumin 3.3 g/dL (3.4-5.0) Albumin/Globulin Ratio 0.8 (1.0-1.7) Thyroid Stimulating Hormone (TSH) 2.545 uIU/mL (0.358-3.74) Salicylates Level < 2.8 mg/dL (2.8-20.0) Salicylate Last Dose Date Unknown Salicylate Last Dose Time Unknown Acetaminophen Level < 2 mcg/ml (10-30) Acetaminophen Last Dose Date Unknown Acetaminophen Last Dose Time Unknown Ethyl Alcohol Level < 10 mg/dL (0-10) CSF Color Colorless CSF Clarity Clear CSF WBC 0 CSF RBC 1 CSF Glucose 68 mg/dL (37-70) CSF Total Protein 32.3 mg/dL (15.0-45.0) Laboratory Tests Test 12/26/16 09:30 12/26/16 09:45 12/26/16 09:50 12/26/16 11:15 Erythrocyte Sedimentation Rate 32 (0-25) Lactic Acid Level 1.3 mmol/L (0.4-2.0) C-Reactive Protein, Quantitative 279.8 mg/L (0-3.3) Urine Collection Type Unknown Urine Color Anila Urine Clarity Clear Urine pH 5.5 Urine Specific [place] 1.025 Urine Protein 100 mg/dL (NEG-TRACE) Urine Glucose (UA) Negative mg/dL (NEG) Urine Ketones (Stick) Trace mg/dL (NEG) Urine Blood Large (NEG) Urine Nitrite Negative (NEG) Urine Bilirubin Small (NEG) Urine Urobilinogen Dipstick 0.2 mg/dL (0.2 mg/dL) Urine Leukocyte Esterase Negative (NEG) Urine RBC 6-10 /HPF (0-2) Urine WBC 1-4 /HPF (0-4) Urine Squamous Epithelial Cells Mod /LPF Urine Bacteria Few /HPF (0-FEW) Urine Mucus Mod /LPF Urine Test Negative (NEG) Urine Opiates Screen Neg (NEG) Urine Methadone Screen Neg (NEG) Urine Barbiturates Neg (NEG) Urine Phencyclidine Screen Neg (NEG) Urine Amphetamine/Methamphetamine Neg (NEG) Urine Benzodiazepines Screen Neg (NEG) Urine Cocaine Screen Neg (NEG) Urine Cannabinoids Screen Neg (NEG) Urine Ethyl Alcohol Neg (NEG) White Blood Count 16.9 x10^3/uL (4.0-11.0) Red Blood Count 5.21 x10^6/uL (3.50-5.40) Hemoglobin 14.5 g/dL (12.0-15.5) Hematocrit 42.3 % (36.0-47.0) Mean Corpuscular Volume 81 fL (79-100) Mean Corpuscular Hemoglobin 28 pg (25-35) Mean Corpuscular Hemoglobin Concent 34 g/dL (31-37) Red Cell Distribution Width 14.2 % (11.5-14.5) Platelet Count 295 x10^3/uL (140-400) Neutrophils (%) (Auto) 84 % (31-73) Lymphocytes (%) (Auto) 10 % (24-48) Monocytes (%) (Auto) 6 % (0-9) Eosinophils (%) (Auto) 0 % (0-3) Basophils (%) (Auto) 0 % (0-3) Neutrophils # (Auto) 14.2 x10^3uL (1.8-7.7) Lymphocytes # (Auto) 1.7 x10^3/uL (1.0-4.8) Monocytes # (Auto) 1.0 x10^3/uL (0.0-1.1) Eosinophils # (Auto) 0.0 x10^3/uL (0.0-0.7) Basophils # (Auto) 0.1 x10^3/uL (0.0-0.2) Prothrombin Time 14.4 SEC (11.7-14.0) Prothromb Time International Ratio 1.2 (0.8-1.1) Activated Partial Thromboplast Time 31 SEC (24-38) Sodium Level 134 mmol/L (136-145) Potassium Level 3.1 mmol/L (3.5-5.1) Chloride Level 94 mmol/L (98-107) Carbon Dioxide Level 31 mmol/L (21-32) Anion Gap 9 (6-14) Blood Urea Nitrogen 14 mg/dL (7-20) Creatinine 1.0 mg/dL (0.6-1.0) Estimated GFR (Cockcroft-Gault) 57.8 BUN/Creatinine Ratio 14 (6-20) Glucose Level 103 mg/dL (70-99) Calcium Level 8.1 mg/dL (8.5-10.1) Magnesium Level 2.4 mg/dL (1.8-2.4) Total Bilirubin 0.7 mg/dL (0.2-1.0) Aspartate Amino Transf (AST/SGOT) 21 U/L (15-37) Alanine Aminotransferase (ALT/SGPT) 27 U/L (14-59) Alkaline Phosphatase 108 U/L (46-116) Creatine Kinase 136 U/L (26-192) Troponin I Quantitative 0.074 ng/mL (0.000-0.055) CN-Flf-A-Type Natriuretic Peptide 747 pg/mL (0-124) Total Protein 7.5 g/dL (6.4-8.2) Albumin 3.3 g/dL (3.4-5.0) Albumin/Globulin Ratio 0.8 (1.0-1.7) Thyroid Stimulating Hormone (TSH) 2.545 uIU/mL (0.358-3.74) Salicylates Level < 2.8 mg/dL (2.8-20.0) Salicylate Last Dose Date Unknown Salicylate Last Dose Time Unknown Acetaminophen Level < 2 mcg/ml (10-30) Acetaminophen Last Dose Date Unknown Acetaminophen Last Dose Time Unknown Ethyl Alcohol Level < 10 mg/dL (0-10) CSF Color Colorless CSF Clarity Clear CSF WBC 0 CSF RBC 1 CSF Glucose 68 mg/dL (37-70) CSF Total Protein 32.3 mg/dL (15.0-45.0) CORNELL LIVINGSTON MD Dec 26, 2016 16:18
[2016-12-26] MEDS: ENOXAPARIN 40 MG/0.4 ML SYRINGE. SQ SCH (16:23)
[2016-12-26] MEDS: PIPERACILLIN/TAZOBACTAM 4.5 GM in IV NORMAL SALINE 100ML 100 ML IV SCH (16:26)
--- NOTE | 2016-12-26 16:48 | RAD ---
AP portable chest radiograph 12/26/2016 Clinical History: Cough for the last week. Two AP portable erect digital radiographs of the chest was obtained. No previous studies are available for comparison. The cardiac silhouette is mildly enlarged. The thoracic aorta is mildly tortuous. No acute pulmonary infiltrate is seen. No pleural effusion or pneumothorax is noted. The osseous structures are grossly intact. Impression: Mild cardiomegaly. No acute pulmonary infiltrate is seen.
[2016-12-26] MEDS: MORPHINE SULFATE 2 MG/ML DISP.SYRIN. IV PRN ×2 (16:56→23:00)
[2016-12-26 18:08] LABS: CKMB MASS < 0.5 ng/mL (0.0-3.6); CREATINE KINASE 141 U/L (26-192)
[2016-12-26 19:30] VITALS: BP 129/85
[2016-12-26] MEDS: traMADol 50 MG TABLET PO PRN (20:25)
[2016-12-26] MEDS: VANCOMYCIN 1.25 GM in IV NORMAL SALINE 250ML 250 ML IV SCH (23:00)
[2016-12-26 23:25] VITALS: BP 135/88
[2016-12-27] MEDS: PIPERACILLIN/TAZOBACTAM 4.5 GM in IV NORMAL SALINE 100ML 100 ML IV SCH ×5 (00:25→23:45)
[2016-12-27] MEDS: traMADol 50 MG TABLET PO PRN ×2 (02:46→09:34)
[2016-12-27 03:40] VITALS: BP 118/85
[2016-12-27 05:55] LABS: BASO % 1 % (0-3); EOS % 1 % (0-3); HEMATOCRIT 38.9 % (36.0-47.0); LYMPH # 1.8 x10^3/uL (1.0-4.8); LYMPH % 19 % (24-48); MEAN CORPUSCULAR HEMOGLOBIN 27 pg (25-35); MEAN CORPUSCULAR HGB CONC 33 g/dL (31-37); MEAN CORPUSCULAR VOLUME 82 fL (79-100); MONO % 10 % (0-9); NEUT % 70 % (31-73); PLATELET COUNT 278 x10^3/uL (140-400); RED BLOOD COUNT 4.74 x10^6/uL (3.50-5.40); WHITE BLOOD COUNT 9.5 x10^3/uL (4.0-11.0)
[2016-12-27 06:12] LABS: CALCIUM 7.9 mg/dL (8.5-10.1); CREATININE 0.8 mg/dL (0.6-1.0); GFR 74.7; POTASSIUM 3.5 mmol/L (3.5-5.1)
[2016-12-27 07:30] VITALS: BP 118/85
[2016-12-27] MEDS ORDERED: SUMAtriptan SUCCINATE 25 MG TABLET PO PRN (08:15)
--- NOTE | 2016-12-27 09:37 | EKG ---
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
--- NOTE | 2016-12-27 10:22 | EKG ---
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
[2016-12-27] MEDS ORDERED: GADOBUTROL 7.5 MMOL/7.5 ML VIAL IV ONE (11:15)
--- NOTE | 2016-12-27 12:16 | PDOC ---
PROGRESS NOTES Chief Complaint Chief Complaint 1. headache, acute on chronic, possible migraine 2. possible sepsis, not clear etiology 3. leukocytosis 4. hypokalemia 5. N/V with diarrhea 6. elevated troponin, 2/2 sepsis likely plan: fu with neuro, id, card cx pending check CXR neg LP neg so far jeanie du for now, will dc soon if cont neg cx ivf check stool cx, cdiff regular diet pain control cycle CE, neg later MRI brain as per neuro ok to transfer to 4 floor History of Present Illness History of Present Illness denies fever at home, which is opposite from yesterday diarrhea 3ds resolved now still headache Vitals Vitals Vital Signs Date Time Temp Pulse Resp B/P (MAP) Pulse Ox O2 Delivery O2 Flow Rate FiO2 12/27/16 10:30 Room Air 12/27/16 07:30 98.3 81 18 118/85 (96) 95 98.3 12/26/16 21:25 2.0 Physical Exam General: Alert, Cooperative, No acute distress Heart: Regular rate, Normal S1, Normal S2, No murmurs Lungs: Clear Abdomen: Normal bowel sounds, Soft Extremities: No edema, Normal pulses Skin: No rashes Labs LABS Laboratory Tests Test 12/26/16 17:25 12/26/16 23:05 12/27/16 05:05 Creatine Kinase 141 U/L (26-192) Creatine Kinase MB (Mass) < 0.5 ng/mL (0.0-3.6) Creatine Kinase MB Relative Index % (0-4) Troponin I Quantitative 0.021 ng/mL (0.000-0.055) 0.025 ng/mL (0.000-0.055) White Blood Count 9.5 x10^3/uL (4.0-11.0) Red Blood Count 4.74 x10^6/uL (3.50-5.40) Hemoglobin 13.0 g/dL (12.0-15.5) Hematocrit 38.9 % (36.0-47.0) Mean Corpuscular Volume 82 fL (79-100) Mean Corpuscular Hemoglobin 27 pg (25-35) Mean Corpuscular Hemoglobin Concent 33 g/dL (31-37) Red Cell Distribution Width 14.0 % (11.5-14.5) Platelet Count 278 x10^3/uL (140-400) Neutrophils (%) (Auto) 70 % (31-73) Lymphocytes (%) (Auto) 19 % (24-48) Monocytes (%) (Auto) 10 % (0-9) Eosinophils (%) (Auto) 1 % (0-3) Basophils (%) (Auto) 1 % (0-3) Neutrophils # (Auto) 6.6 x10^3uL (1.8-7.7) Lymphocytes # (Auto) 1.8 x10^3/uL (1.0-4.8) Monocytes # (Auto) 0.9 x10^3/uL (0.0-1.1) Eosinophils # (Auto) 0.1 x10^3/uL (0.0-0.7) Basophils # (Auto) 0.0 x10^3/uL (0.0-0.2) Sodium Level 141 mmol/L (136-145) Potassium Level 3.5 mmol/L (3.5-5.1) Chloride Level 106 mmol/L (98-107) Carbon Dioxide Level 28 mmol/L (21-32) Anion Gap 7 (6-14) Blood Urea Nitrogen 10 mg/dL (7-20) Creatinine 0.8 mg/dL (0.6-1.0) Estimated GFR (Cockcroft-Gault) 74.7 Glucose Level 99 mg/dL (70-99) Calcium Level 7.9 mg/dL (8.5-10.1) Review of Systems Review of Systems no fever, chills, sob or chest pain Assessment and Plan Assessmemt and Plan Problems Medical Problems: (1) Elevated C-reactive protein Status: Acute (2) Elevated troponin I level Status: Acute (3) Headache Status: Acute (4) Sepsis Status: Acute Problems: Comment Review of Relevant I have reviewed the following items kavitha (where applicable) has been applied. Labs Laboratory Tests Test 12/26/16 09:30 12/26/16 09:45 12/26/16 09:50 12/26/16 11:15 Erythrocyte Sedimentation Rate 32 (0-25) Lactic Acid Level 1.3 mmol/L (0.4-2.0) C-Reactive Protein, Quantitative 279.8 mg/L (0-3.3) Urine Collection Type Unknown Urine Color Anila Urine Clarity Clear Urine pH 5.5 Urine Specific Chappell 1.025 Urine Protein 100 mg/dL (NEG-TRACE) Urine Glucose (UA) Negative mg/dL (NEG) Urine Ketones (Stick) Trace mg/dL (NEG) Urine Blood Large (NEG) Urine Nitrite Negative (NEG) Urine Bilirubin Small (NEG) Urine Urobilinogen Dipstick 0.2 mg/dL (0.2 mg/dL) Urine Leukocyte Esterase Negative (NEG) Urine RBC 6-10 /HPF (0-2) Urine WBC 1-4 /HPF (0-4) Urine Squamous Epithelial Cells Mod /LPF Urine Bacteria Few /HPF (0-FEW) Urine Mucus Mod /LPF Urine Test Negative (NEG) Urine Opiates Screen Neg (NEG) Urine Methadone Screen Neg (NEG) Urine Barbiturates Neg (NEG) Urine Phencyclidine Screen Neg (NEG) Urine Amphetamine/Methamphetamine Neg (NEG) Urine Benzodiazepines Screen Neg (NEG) Urine Cocaine Screen Neg (NEG) Urine Cannabinoids Screen Neg (NEG) Urine Ethyl Alcohol Neg (NEG) White Blood Count 16.9 x10^3/uL (4.0-11.0) Red Blood Count 5.21 x10^6/uL (3.50-5.40) Hemoglobin 14.5 g/dL (12.0-15.5) Hematocrit 42.3 % (36.0-47.0) Mean Corpuscular Volume 81 fL (79-100) Mean Corpuscular Hemoglobin 28 pg (25-35) Mean Corpuscular Hemoglobin Concent 34 g/dL (31-37) Red Cell Distribution Width 14.2 % (11.5-14.5) Platelet Count 295 x10^3/uL (140-400) Neutrophils (%) (Auto) 84 % (31-73) Lymphocytes (%) (Auto) 10 % (24-48) Monocytes (%) (Auto) 6 % (0-9) Eosinophils (%) (Auto) 0 % (0-3) Basophils (%) (Auto) 0 % (0-3) Neutrophils # (Auto) 14.2 x10^3uL (1.8-7.7) Lymphocytes # (Auto) 1.7 x10^3/uL (1.0-4.8) Monocytes # (Auto) 1.0 x10^3/uL (0.0-1.1) Eosinophils # (Auto) 0.0 x10^3/uL (0.0-0.7) Basophils # (Auto) 0.1 x10^3/uL (0.0-0.2) Prothrombin Time 14.4 SEC (11.7-14.0) Prothromb Time International Ratio 1.2 (0.8-1.1) Activated Partial Thromboplast Time 31 SEC (24-38) Sodium Level 134 mmol/L (136-145) Potassium Level 3.1 mmol/L (3.5-5.1) Chloride Level 94 mmol/L (98-107) Carbon Dioxide Level 31 mmol/L (21-32) Anion Gap 9 (6-14) Blood Urea Nitrogen 14 mg/dL (7-20) Creatinine 1.0 mg/dL (0.6-1.0) Estimated GFR (Cockcroft-Gault) 57.8 BUN/Creatinine Ratio 14 (6-20) Glucose Level 103 mg/dL (70-99) Calcium Level 8.1 mg/dL (8.5-10.1) Magnesium Level 2.4 mg/dL (1.8-2.4) Total Bilirubin 0.7 mg/dL (0.2-1.0) Aspartate Amino Transf (AST/SGOT) 21 U/L (15-37) Alanine Aminotransferase (ALT/SGPT) 27 U/L (14-59) Alkaline Phosphatase 108 U/L (46-116) Creatine Kinase 136 U/L (26-192) Troponin I Quantitative 0.074 ng/mL (0.000-0.055) JQ-Ztc-N-Type Natriuretic Peptide 747 pg/mL (0-124) Total Protein 7.5 g/dL (6.4-8.2) Albumin 3.3 g/dL (3.4-5.0) Albumin/Globulin Ratio 0.8 (1.0-1.7) Procalcitonin 0.55 ng/mL (0.00-0.10) Thyroid Stimulating Hormone (TSH) 2.545 uIU/mL (0.358-3.74) Salicylates Level < 2.8 mg/dL (2.8-20.0) Salicylate Last Dose Date Unknown Salicylate Last Dose Time Unknown Acetaminophen Level < 2 mcg/ml (10-30) Acetaminophen Last Dose Date Unknown Acetaminophen Last Dose Time Unknown Ethyl Alcohol Level < 10 mg/dL (0-10) CSF Color Colorless CSF Clarity Clear CSF WBC 0 CSF RBC 1 CSF Glucose 68 mg/dL (37-70) CSF Total Protein 32.3 mg/dL (15.0-45.0) Test 12/26/16 17:25 12/26/16 23:05 12/27/16 05:05 Creatine Kinase 141 U/L (26-192) Creatine Kinase MB (Mass) < 0.5 ng/mL (0.0-3.6) Creatine Kinase MB Relative Index % (0-4) Troponin I Quantitative 0.021 ng/mL (0.000-0.055) 0.025 ng/mL (0.000-0.055) White Blood Count 9.5 x10^3/uL (4.0-11.0) Red Blood Count 4.74 x10^6/uL (3.50-5.40) Hemoglobin 13.0 g/dL (12.0-15.5) Hematocrit 38.9 % (36.0-47.0) Mean Corpuscular Volume 82 fL (79-100) Mean Corpuscular Hemoglobin 27 pg (25-35) Mean Corpuscular Hemoglobin Concent 33 g/dL (31-37) Red Cell Distribution Width 14.0 % (11.5-14.5) Platelet Count 278 x10^3/uL (140-400) Neutrophils (%) (Auto) 70 % (31-73) Lymphocytes (%) (Auto) 19 % (24-48) Monocytes (%) (Auto) 10 % (0-9) Eosinophils (%) (Auto) 1 % (0-3) Basophils (%) (Auto) 1 % (0-3) Neutrophils # (Auto) 6.6 x10^3uL (1.8-7.7) Lymphocytes # (Auto) 1.8 x10^3/uL (1.0-4.8) Monocytes # (Auto) 0.9 x10^3/uL (0.0-1.1) Eosinophils # (Auto) 0.1 x10^3/uL (0.0-0.7) Basophils # (Auto) 0.0 x10^3/uL (0.0-0.2) Sodium Level 141 mmol/L (136-145) Potassium Level 3.5 mmol/L (3.5-5.1) Chloride Level 106 mmol/L (98-107) Carbon Dioxide Level 28 mmol/L (21-32) Anion Gap 7 (6-14) Blood Urea Nitrogen 10 mg/dL (7-20) Creatinine 0.8 mg/dL (0.6-1.0) Estimated GFR (Cockcroft-Gault) 74.7 Glucose Level 99 mg/dL (70-99) Calcium Level 7.9 mg/dL (8.5-10.1) Laboratory Tests Test 12/26/16 17:25 12/26/16 23:05 12/27/16 05:05 Creatine Kinase 141 U/L (26-192) Creatine Kinase MB (Mass) < 0.5 ng/mL (0.0-3.6) Creatine Kinase MB Relative Index % (0-4) Troponin I Quantitative 0.021 ng/mL (0.000-0.055) 0.025 ng/mL (0.000-0.055) White Blood Count 9.5 x10^3/uL (4.0-11.0) Red Blood Count 4.74 x10^6/uL (3.50-5.40) Hemoglobin 13.0 g/dL (12.0-15.5) Hematocrit 38.9 % (36.0-47.0) Mean Corpuscular Volume 82 fL (79-100) Mean Corpuscular Hemoglobin 27 pg (25-35) Mean Corpuscular Hemoglobin Concent 33 g/dL (31-37) Red Cell Distribution Width 14.0 % (11.5-14.5) Platelet Count 278 x10^3/uL (140-400) Neutrophils (%) (Auto) 70 % (31-73) Lymphocytes (%) (Auto) 19 % (24-48) Monocytes (%) (Auto) 10 % (0-9) Eosinophils (%) (Auto) 1 % (0-3) Basophils (%) (Auto) 1 % (0-3) Neutrophils # (Auto) 6.6 x10^3uL (1.8-7.7) Lymphocytes # (Auto) 1.8 x10^3/uL (1.0-4.8) Monocytes # (Auto) 0.9 x10^3/uL (0.0-1.1) Eosinophils # (Auto) 0.1 x10^3/uL (0.0-0.7) Basophils # (Auto) 0.0 x10^3/uL (0.0-0.2) Sodium Level 141 mmol/L (136-145) Potassium Level 3.5 mmol/L (3.5-5.1) Chloride Level 106 mmol/L (98-107) Carbon Dioxide Level 28 mmol/L (21-32) Anion Gap 7 (6-14) Blood Urea Nitrogen 10 mg/dL (7-20) Creatinine 0.8 mg/dL (0.6-1.0) Estimated GFR (Cockcroft-Gault) 74.7 Glucose Level 99 mg/dL (70-99) Calcium Level 7.9 mg/dL (8.5-10.1) Microbiology 12/26/16 Blood Culture - Preliminary, Resulted NO GROWTH AFTER 1 DAY 12/26/16 Gram Stain - Final, Complete Medications Current Medications Meclizine HCl (Antivert) 25 mg 1X ONCE PO Last administered on 12/26/16 09:48 ; Start 12/26/16 at 09:00; Stop 12/26/16 at 09:13; Status DC Diphenhydramine HCl (Benadryl) 25 mg 1X ONCE IVP Last administered on 09:45; Start 12/26/16 at 09:30; Stop 12/26/16 at 09:31; Status DC Ketorolac Tromethamine (Toradol) 30 mg 1X ONCE IV Last administered on 09:43; Start 12/26/16 at 09:30; Stop 12/26/16 at 09:31; Status DC Prochlorperazine Edisylate (Compazine) 10 mg 1X ONCE IV Last administered on 09:46; Start 12/26/16 at 09:30; Stop 12/26/16 at 09:31; Status DC Sodium Chloride 1,000 ml @ 1,000 mls/hr 1X ONCE IV Last administered on 10:44; Start 12/26/16 at 10:15; Stop 12/26/16 at 11:14; Status DC Potassium Chloride (Klor-Con) 40 meq 1X ONCE PO Last administered on 12:00; Start 12/26/16 at 10:30; Stop 12/26/16 at 10:31; Status DC Ceftriaxone Sodium 2 gm/ Sodium Chloride 100 ml @ 200 mls/hr 1X ONCE IV Last administered on 12/26/16 10:44; Start 12/26/16 at 10:45; Stop 12/26/16 at 11:14 ; Status DC Aspirin (Ecotrin) 325 mg 1X ONCE PO Last administered on 12/26/16 11:59; Start 12/26/16 at 10:45; Stop 12/26/16 at 10:46; Status DC Midazolam HCl (Versed) 2 mg 1X ONCE IV Last administered on 12/26/16 11:01; Start 12/26/16 at 10:45; Stop 12/26/16 at 10:46; Status DC Sodium Chloride 1,000 ml @ 1,000 mls/hr 1X ONCE IV Last administered on 12:09; Start 12/26/16 at 10:45; Stop 12/26/16 at 11:44; Status DC Vancomycin HCl 1.25 gm/Sodium Chloride 250 ml @ 166.667 mls/hr 1X ONCE IV ; Start 12/26/16 at 10:45; Stop 12/26/16 at 12:14; Status UNV Vancomycin HCl 1.75 gm/Sodium Chloride 500 ml @ 250 mls/hr 1X ONCE IV Last administered on 12/26/16 12:02; Start 12/26/16 at 11:00; Stop 12/26/16 at 12:59 ; Status DC Ondansetron HCl (Zofran) 4 mg PRN Q8HRS PRN IV NAUSEA/VOMITING Last administered on 12/26/16 20:24; Start 12/26/16 at 11:15; Stop 12/27/16 at 11:14 ; Status DC Fentanyl Citrate (Fentanyl 2ml Vial) 50 mcg PRN Q2HR PRN IV PAIN; Start at 11:15; Stop 12/27/16 at 11:14; Status DC Potassium Chloride (Klor-Con) 40 meq 1X ONCE PO Last administered on 14:26; Start 12/26/16 at 14:00; Stop 12/26/16 at 14:01; Status DC Sodium Chloride 1,000 ml @ 100 mls/hr Q10H IV Last administered on 12/26/16 16:25; Start 12/26/16 at 15:30; Stop 12/27/16 at 08:15; Status DC Acetaminophen (Tylenol) 650 mg PRN Q6HRS PRN PO FEVER; Start 12/26/16 at 15:30 Ondansetron HCl (Zofran) 4 mg PRN Q6HRS PRN IV NAUSEA/VOMITING; Start 12/26/16 at 15:30 Morphine Sulfate 2 mg PRN Q2HR PRN IV PAIN Last administered on 12/26/16 23:00 ; Start 12/26/16 at 15:30 Tramadol HCl (Ultram) 50 mg PRN Q6HRS PRN PO PAIN Last administered on 09:34; Start 12/26/16 at 15:30 Hydralazine HCl (Apresoline) 10 mg PRN Q4HRS PRN IVP ELEVATED BP, SEE COMMENTS ; Start 12/26/16 at 15:30 Docusate Sodium (Colace) 100 mg PRN DAILY PRN PO CONSTIPATION; Start 12/26/16 at 15:30 Vancomycin HCl (Vanco Per Pharmacy) 1 each PRN DAILY PRN MC SEE COMMENTS Last administered on 12/26/16 15:42; Start 12/26/16 at 15:30 Piperacillin Sod/ Tazobactam Sod 4.5 gm/Sodium Chloride 100 ml @ 200 mls/hr Q6HRS IV Last administered on 12/27/16 06:13; Start 12/26/16 at 16:00 Piperacillin Sod/ Tazobactam Sod (Zosyn Per Pharmacy) 1 each PRN DAILY PRN MC SEE COMMENTS; Start 12/26/16 at 15:30 Vancomycin HCl 1.25 gm/Sodium Chloride 250 ml @ 166.667 mls/hr Q12H IV Last administered on 12/26/16 23:00; Start 12/26/16 at 23:00 Enoxaparin Sodium (Lovenox 40mg Syringe) 40 mg Q24H SQ Last administered on 16:23; Start 12/26/16 at 16:00 Vancomycin HCl 1 each 1X ONCE MC ; Start 12/27/16 at 22:30; Stop 12/27/16 at 22 :31 Sumatriptan Succinate (Imitrex) 25 mg PRN Q2HR PRN PO MIGRAINE HEADACHE; Start 12/27/16 at 08:15 Gadobutrol (Gadavist) 7.5 mmol 1X ONCE IV Last administered on 12/27/16t 11:19 ; Start 12/27/16 at 11:15; Stop 12/27/16 at 11:16; Status DC Vitals/I & O Vital Sign - Last 24 Hours 12/26/16 12/26/16 12/26/16 12/26/16 12:16 13:00 13:28 15:00 Temp 98.9 97.8 98.9 97.8 Pulse 91 84 88 Resp 21 18 18 B/P (MAP) 135/88 (104) 113/71 (85) 123/84 (97) Pulse Ox 97 97 94 O2 Delivery Nasal Cannula Nasal Cannula Room Air Room Air O2 Flow Rate 2.0 2.0 12/26/16 12/26/16 12/26/16 12/26/16 16:56 19:30 20:00 20:25 Temp 98.3 98.3 Pulse 98 Resp 18 B/P (MAP) 129/85 (100) Pulse Ox 94 96 94 O2 Delivery Room Air Room Air Room Air Room Air 12/26/16 12/26/16 12/26/16 12/26/16 21:25 23:00 23:25 23:30 Temp 98.5 98.5 Pulse 88 Resp 18 B/P (MAP) 135/88 (104) Pulse Ox 94 95 95 O2 Delivery Room Air Room Air Room Air O2 Flow Rate 2.0 12/27/16 12/27/16 12/27/16 12/27/16 02:46 03:40 03:46 07:30 Temp 98.4 98.3 98.4 98.3 Pulse 80 81 Resp 18 18 B/P (MAP) 118/85 (96) 118/85 (96) Pulse Ox 95 96 95 95 O2 Delivery Room Air Room Air Room Air 12/27/16 12/27/16 09:34 10:30 O2 Delivery Room Air Room Air Intake and Output 12/26/16 12/26/16 12/27/16 15:00 23:00 07:00 Intake Total 1200 ml 240 ml 590 ml Output Total 300 ml Balance 1200 ml -60 ml 590 ml SILVESTRE HARMON MD Dec 27, 2016 12:16
--- NOTE | 2016-12-27 12:39 | PDOC ---
AILYN DONAHUE HONING MACHINE SET UP OPERATOR 12/27/16 1239: CARDIO Progress Notes Date and Time Date of Service 12/27/16 Time of Evaluation 1215 Subjective Subjective: No Chest Pain, No shortness of breath Comments: c/o SINHA Vitals Vitals Vital Signs Date Time Temp Pulse Resp B/P (MAP) Pulse Ox O2 Delivery O2 Flow Rate FiO2 12/27/16 10:30 Room Air 12/27/16 07:30 98.3 81 18 118/85 (96) 95 98.3 12/26/16 21:25 2.0 Weight Weight [ ] Input and Output Intake and Output Intake and Output 12/27/16 07:00 Intake Total 2030 ml Output Total 300 ml Balance 1730 ml Intake Oral 480 ml IV Total 1550 ml Output Stool Total 300 ml # Voids 8 # Bowel Movements 1 Laboratory Labs Laboratory Tests Test 12/26/16 17:25 12/26/16 23:05 12/27/16 05:05 Creatine Kinase 141 U/L (26-192) Creatine Kinase MB (Mass) < 0.5 ng/mL (0.0-3.6) Creatine Kinase MB Relative Index % (0-4) Troponin I Quantitative 0.021 ng/mL (0.000-0.055) 0.025 ng/mL (0.000-0.055) White Blood Count 9.5 x10^3/uL (4.0-11.0) Red Blood Count 4.74 x10^6/uL (3.50-5.40) Hemoglobin 13.0 g/dL (12.0-15.5) Hematocrit 38.9 % (36.0-47.0) Mean Corpuscular Volume 82 fL (79-100) Mean Corpuscular Hemoglobin 27 pg (25-35) Mean Corpuscular Hemoglobin Concent 33 g/dL (31-37) Red Cell Distribution Width 14.0 % (11.5-14.5) Platelet Count 278 x10^3/uL (140-400) Neutrophils (%) (Auto) 70 % (31-73) Lymphocytes (%) (Auto) 19 % (24-48) Monocytes (%) (Auto) 10 % (0-9) Eosinophils (%) (Auto) 1 % (0-3) Basophils (%) (Auto) 1 % (0-3) Neutrophils # (Auto) 6.6 x10^3uL (1.8-7.7) Lymphocytes # (Auto) 1.8 x10^3/uL (1.0-4.8) Monocytes # (Auto) 0.9 x10^3/uL (0.0-1.1) Eosinophils # (Auto) 0.1 x10^3/uL (0.0-0.7) Basophils # (Auto) 0.0 x10^3/uL (0.0-0.2) Sodium Level 141 mmol/L (136-145) Potassium Level 3.5 mmol/L (3.5-5.1) Chloride Level 106 mmol/L (98-107) Carbon Dioxide Level 28 mmol/L (21-32) Anion Gap 7 (6-14) Blood Urea Nitrogen 10 mg/dL (7-20) Creatinine 0.8 mg/dL (0.6-1.0) Estimated GFR (Cockcroft-Gault) 74.7 Glucose Level 99 mg/dL (70-99) Calcium Level 7.9 mg/dL (8.5-10.1) Microbiology Micro Microbiology 12/26/16 Blood Culture - Preliminary, Resulted NO GROWTH AFTER 1 DAY 12/26/16 Gram Stain - Final, Complete Physical Exam HEENT: Neck Supple W Full Motion Chest: Symmetric LUNGS: Clear to Auscultation Heart: S1S2, RRR Abdomen: Soft N/T Extremities: 2+ Dorsalis Pedis, No Edema Neurology: alert, oriented, follow commands Assessment Assessment 1. trivial troponin elevation likely type two demand ischemia secondary to sepsis echo today to assess LV function/evaluate for WMA. If WNL, may discharge from a cardiac standpoint. 2. headaches, chronic per neuro 3. Leukocytosis per PCP 4. Hypokalemia replaced. check Mg BEATRIZ PERKINS MD 12/28/16 1133: CARDIO Progress Notes Assessment Assessment Patient seen and examined 12/27/16. Agree with PCB DESIGN ENGINEER's assessment and plan. 2-D echo showed LVEF 50-55% with possible lateral wall hypokinesis. Plan for stress test as an outpatient. Continue treatment for headache per neurology team. AILYN DONAHUE APRN Dec 27, 2016 12:39 BEATRIZ PERKINS MD Dec 28, 2016 11:33
[2016-12-27] MEDS: VANCOMYCIN PER PHARMACY MC PRN (13:44)
[2016-12-27] MEDS: VANCOMYCIN 1.25 GM in IV NORMAL SALINE 250ML 250 ML IV SCH ×2 (13:46→16:00)
--- NOTE | 2016-12-27 14:08 | RAD ---
MRI Brain with and without contrast History:WORSENING HEADACHES X 2 WEEKS, RECENT FALL Technique: Axial diffusion, axial gradient echo T2, axial T2, axial FLAIR, sagittal and axial T1, and postcontrast axial, sagittal, and coronal T1-weighted images were acquired of the brain. Contrast: 7.5 cc Gadavist Comparison: None Findings: There is some motion degradation. There is no evidence of recent infarct or cytotoxic edema. The ventricles, sulci, and cisterns are within normal limits in size and configuration. There is no significant midline shift, intraaxial mass effect, or focal abnormal extra-axial fluid collection. There is [id number] T2 and FLAIR hyperintense abnormality of the periatrial white matter bilaterally, also scattered foci more anteriorly such as of the perera radiata greater on the left. There is no significant hemosiderin deposition of the brain parenchyma. There is no nodular parenchymal or leptomeningeal enhancement. There is preservation of the major intracranial flow-voids at the skull base. The cerebellar tonsils are normal in location. There is no significant abnormality of the pineal gland or pituitary gland. Paranasal sinuses are mostly aerated other than focus of signal abnormality at the floor of the left maxillary sinus up to 2 cm AP, uncertain if do to somewhat complex mucous retention cyst.. The mastoid air cells are aerated. There is preserved marrow signal of the clivus. Impression: 1. Scattered T2 and FLAIR hyperintense abnormality of the supratentorial white matter is nonspecific. Findings could be due to chronic microvascular ischemic disease especially if risk factors such as hypertension or diabetes. Pattern is not particularly suggestive of an inflammatory demyelinating disease. 2. There is a focus of signal abnormality at the floor of the left maxillary sinus, may be a complex mucous retention cyst. Electronically signed by: Ravin Fabian MD (12/27/2016 2:05 PM)
--- NOTE | 2016-12-27 15:37 | CARD ---
APPROVED REPORT EXAM: Two-dimensional and M-mode echocardiogram with Doppler and color Doppler. Other Information Quality : GoodHR: 80bpm Rhythm : NSR INDICATION Elevated troponin RISK FACTORS Obesity 2D DIMENSIONS RVDd3.1 (2.9-3.5cm)Left Atrium(2D)3.1 (1.6-4.0cm) IVSd1.2 (0.7-1.1cm)Aortic Root(2D)2.9 (2.0-3.7cm) LVDd4.4 (3.9-5.9cm)LVOT Diameter2.3 (1.8-2.4cm) PWd1.1 (0.7-1.1cm)LVDs3.0 (2.5-4.0cm) FS (%) 31.3 %SV51.6 ml LVEF(%)59.3 (>50%) Aortic Valve AoV Peak Wesley.155.1cm/sAoV VTI29.1cm AO Peak GR.9.6mmHgLVOT Peak Wesley.109.0cm/s AO Mean GR.5mmHgAVA (VMAX)2.94cm2 Mitral Valve MV E Okgoejpi211.4cm/sMV E Peak Gr.4mmHg MV DECEL [id number] A Owyrqkde20.3cm/s MV E Mean Gr.2mmHgE/A Ratio1.5 MV A [id number] Pulmonary Valve PV Peak Umkufbgt82.2cm/s Tricuspid Valve TR P. Blgzrvlf016ur/sTR Peak Gr.32mmHg Pulmonary Vein S1 Fodcfnsb17.5cm/sD2 Wbigistn08.3cm/s PVa [id number] LEFT VENTRICLE The left ventricle is normal size. There is mild left ventricular hypertrophy. The left ventricular s ystolic function is normal and the ejection fraction is within normal range. The Ejection Fraction is 50-55%. There is a subtle basal to mid lateral wall hypokinesis. The left ventricular diastolic func tion and filling is normal for age. RIGHT VENTRICLE The right ventricle is normal size. There is normal right ventricular wall thickness. The right ventr icular systolic function is normal. ATRIA The left atrium size is normal. The right atrium size is normal. The interatrial septum is intact wit h no evidence for an atrial septal defect or patent foramen ovale as noted on 2-D or Doppler imaging. AORTIC VALVE The aortic valve is thickened. The aortic valve is probably bicuspid. Doppler and Color Flow revealed no significant aortic regurgitation. There is no significant aortic valvular stenosis. MITRAL VALVE Mitral annular calcification is mild. The mitral valve leaflets are thickened. There is no evidence o f mitral valve prolapse. There is no mitral valve stenosis. Doppler and Color Flow revealed mild to m oderate mitral regurgitation. TRICUSPID VALVE Doppler and Color Flow revealed mild tricuspid regurgitation. The pulmonary artery systolic pressure is estimated at 35 mmHg. There is mild pulmonary hypertension. PULMONIC VALVE Doppler and Color Flow revealed no pulmonic valvular regurgitation. There is no pulmonic valvular saurav nosis. GREAT VESSELS The aortic root is normal in size. The ascending aorta is normal in size. The IVC is normal in size a nd collapses >50% with inspiration. PERICARDIAL EFFUSION There is no evidence of significant pericardial effusion. Critical Notification Critical Value: No <Conclusion> The left ventricular systolic function is normal and the ejection fraction is within normal range. T he Ejection Fraction is 50-55%. There is a subtle basal to mid lateral wall hypokinesis.
[2016-12-27] MEDS ORDERED: LIDO:MAALOX:DONNATAL 1:1:1 15 ML SINGLE DOSE SWSW PRN (15:45)
[2016-12-27] MEDS: ENOXAPARIN 40 MG/0.4 ML SYRINGE. SQ SCH (16:41)
[2016-12-27] MEDS: PANTOPRAZOLE 40 MG TABLET.DR. PO SCH (16:41)
--- NOTE | 2016-12-27 18:41 | PDOC ---
PROGRESS NOTES Assessment Assessment Worsening of chronic headache. Chronic headaches x 2 years. Obesity. Has not seen PCP for > 2 years. No evidence of CVA or tumor at the present time. RECOMMENDATIONS/PLAN: Pain control. Treat medical diseases. Weight reduction. See PCP. HISTORY OF THE PRESENT ILLNESS: 56-y-old [place] origin female patient with Hx of chronic headaches for more than 2 years. She has about 8 or more obvious headaches a month in her entire head described as compression and sharp pain lasting for several hours each time after taking OTC to stop pain. She has nausea sometimes but no vomiting. No symptoms of decreased vision, diplopia. ataxia, numbness or weakness. She has not seen PCP for more than 2 years. She stated that her headaches were resolved on 12/27/16. PAST MEDICAL HISTORY: Unknown due to not seen PCP. PAST SURGERY HISTORY: . ALLERGY: Unknown MEDICATIONS: OTC FAMILY HISTORY: Non contributory. SOCIAL HISTORY: Lives with her familt at home. Denies smoking, drinking, and illicit drug use. REVIEW OF SYSTEMS: Constitutional: Obesity. Head: No traumatic brain or head injury. Skin: No edema, or rash. Ear: No infection. Eyes: No vision loss or color blindness. Nose: No bleeding or purulent discharges. Hearing: No hearing decrease. Neck: No injury. Breast: No history of cancer, masses,or discharges. Cardiac: No SD, arrhythmia. Pulmonary: No pneumonia or COPD. GI: No GI ulcer, GI bleeding. Urinary/genital: UTI. Endocrinologic: Obesity. Skeletomuscular: No muscular atrophy, deformity. Neurological: see HP. Psychiatric: Denies drug use/abuse. Otherwise, not [id number] review of systems. PHYSICAL EXAMINATION: General appearance is in subacute distress. HEENT: Normocephalic and nontraumatic. Eyes, nose, ears, and throat are unremarkable. Neck is supple. No lymphadenopathy. No bruits are heard over the carotid artery. No crepitus. Cardiovascular: S1, S2, regular rate and rhythm. Pulmonary: Clear to auscultation bilaterally. Abdomen: Bowel sounds are positive. Abdomen is soft, nontender, and nondistended. Extremities: No rash, lesions, or edema. No restriction of range of motion NEUROLOGICAL EXAMINATION: Alert Oriented to time, place and person. PERRL. EOMI. CN: no focal findings. Muscle tone: within normal. Muscle strength: 5 DTR: 2 Plantar reflex: Flexor response bilaterally Gait: not examined in bed. Sensory exam: no abnormal findings. No cerebellar signs elicited. F-T-N test fine. Objective Objective Vital Signs Date Time Temp Pulse Resp B/P (MAP) Pulse Ox O2 Delivery O2 Flow Rate FiO2 12/27/16 10:30 Room Air 12/27/16 07:30 98.3 81 18 118/85 (96) 95 98.3 12/26/16 21:25 2.0 Intake and Output 12/27/16 07:00 Intake Total 2030 ml Output Total 300 ml Balance 1730 ml Intake Oral 480 ml IV Total 1550 ml Output Stool Total 300 ml # Voids 8 # Bowel Movements 1 Vitals Signs Vitals VS - Last 72 Hours, by Label Date Time Temp Pulse Resp B/P (MAP) Pulse Ox O2 Delivery O2 Flow Rate FiO2 12/27/16 10:30 Room Air 12/27/16 09:34 Room Air 12/27/16 08:05 Room Air 12/27/16 07:30 98.3 81 18 118/85 (96) 95 Room Air 98.3 12/27/16 03:46 95 12/27/16 03:40 98.4 80 18 118/85 (96) 96 Room Air 98.4 12/27/16 02:46 95 Room Air 12/26/16 23:30 95 Room Air 12/26/16 23:25 98.5 88 18 135/88 (104) 95 Room Air 98.5 12/26/16 23:00 94 Room Air 12/26/16 21:25 2.0 12/26/16 20:25 94 Room Air 12/26/16 20:00 Room Air 12/26/16 19:30 98.3 98 18 129/85 (100) 96 Room Air 98.3 12/26/16 16:56 94 Room Air 12/26/16 15:00 97.8 88 18 123/84 (97) 94 Room Air 97.8 12/26/16 13:28 98.9 84 18 113/71 (85) 97 Room Air 98.9 12/26/16 13:00 Nasal Cannula 2.0 12/26/16 12:16 91 21 135/88 (104) 97 Nasal Cannula 2.0 12/26/16 11:46 93 21 126/81 (96) 98 Nasal Cannula 2.0 12/26/16 11:16 99 26 126/81 (96) 98 Nasal Cannula 2.0 12/26/16 11:12 104 142/77 (98) 91 Room Air 12/26/16 10:46 97 23 131/87 (102) 92 Room Air 12/26/16 10:16 101 25 144/97 (113) 92 Room Air 12/26/16 09:46 114 32 142/87 (105) 90 Room Air 12/26/16 08:52 99.2 107 24 150/96 (114) 92 Room Air 99.2 Laboratory Laboratory Laboratory Tests Test 12/26/16 23:05 12/27/16 05:05 Troponin I Quantitative 0.025 ng/mL (0.000-0.055) White Blood Count 9.5 x10^3/uL (4.0-11.0) Red Blood Count 4.74 x10^6/uL (3.50-5.40) Hemoglobin 13.0 g/dL (12.0-15.5) Hematocrit 38.9 % (36.0-47.0) Mean Corpuscular Volume 82 fL (79-100) Mean Corpuscular Hemoglobin 27 pg (25-35) Mean Corpuscular Hemoglobin Concent 33 g/dL (31-37) Red Cell Distribution Width 14.0 % (11.5-14.5) Platelet Count 278 x10^3/uL (140-400) Neutrophils (%) (Auto) 70 % (31-73) Lymphocytes (%) (Auto) 19 % (24-48) Monocytes (%) (Auto) 10 % (0-9) Eosinophils (%) (Auto) 1 % (0-3) Basophils (%) (Auto) 1 % (0-3) Neutrophils # (Auto) 6.6 x10^3uL (1.8-7.7) Lymphocytes # (Auto) 1.8 x10^3/uL (1.0-4.8) Monocytes # (Auto) 0.9 x10^3/uL (0.0-1.1) Eosinophils # (Auto) 0.1 x10^3/uL (0.0-0.7) Basophils # (Auto) 0.0 x10^3/uL (0.0-0.2) Sodium Level 141 mmol/L (136-145) Potassium Level 3.5 mmol/L (3.5-5.1) Chloride Level 106 mmol/L (98-107) Carbon Dioxide Level 28 mmol/L (21-32) Anion Gap 7 (6-14) Blood Urea Nitrogen 10 mg/dL (7-20) Creatinine 0.8 mg/dL (0.6-1.0) Estimated GFR (Cockcroft-Gault) 74.7 Glucose Level 99 mg/dL (70-99) Calcium Level 7.9 mg/dL (8.5-10.1) Magnesium Level 2.3 mg/dL (1.8-2.4) Microbiology 12/26/16 Blood Culture - Preliminary, Resulted NO GROWTH AFTER 1 DAY 12/26/16 Anaerobic/Aerobic Culture, Resulted Pending 12/26/16 Anaerobic Culture Result 1 (BRYCE), Resulted Pending 12/26/16 Aerobic Culture - Preliminary, Resulted 12/26/16 Aerobic Culture Result 1 (BRYCE) - Preliminary, Resulted Medication Medications Current Medications Gadobutrol (Gadavist) 7.5 mmol 1X ONCE IV Last administered on 12/27/16 11:19 ; Start 12/27/16 at 11:15; Stop 12/27/16 at 11:16; Status DC Multi-Ingredient Mouthwash/Gargle (Gi Cocktail Single Dose) 15 ml PRN 1X PRN SWSW CHEST PAIN; Start 12/27/16 at 15:45 Pantoprazole Sodium (Protonix) 40 mg DAILYAC PO Last administered on 12/27/16 16:41; Start 12/27/16 at 16:00 Sumatriptan Succinate (Imitrex) 25 mg PRN Q2HR PRN PO MIGRAINE HEADACHE; Start 12/27/16 at 08:15 Vancomycin HCl 1 each 1X ONCE MC ; Start 12/28/16 at 03:30; Stop 12/28/16 at 03 :31 Vancomycin HCl 1.25 gm/Sodium Chloride 250 ml @ 166.667 mls/hr Q12H IV Last administered on 12/27/16 13:46; Start 12/26/16 at 23:00; Stop 12/27/16 at 16:10 ; Status DC Vancomycin HCl 1.25 gm/Sodium Chloride 250 ml @ 166.667 mls/hr Q12H IV ; Start 12/27/16 at 16:00 Comment Review of Relevant I have reviewed the following items kavitha (where applicable) has been applied. CORNELL LIVINGSTON MD Dec 27, 2016 18:41
[2016-12-27 19:00] VITALS: BP 119/77
[2016-12-27 23:14] VITALS: BP 132/94
[2016-12-28 03:33] VITALS: BP 121/86
[2016-12-28] MEDS: VANCOMYCIN 1.25 GM in IV NORMAL SALINE 250ML 250 ML IV SCH (03:55)
[2016-12-28 04:06] LABS: BASO % 1 % (0-3); EOS % 5 % (0-3); HEMATOCRIT 37.5 % (36.0-47.0); HEMOGLOBIN 12.9 g/dL (12.0-15.5); LYMPH # 2.2 x10^3/uL (1.0-4.8); LYMPH % 25 % (24-48); MEAN CORPUSCULAR HEMOGLOBIN 28 pg (25-35); MEAN CORPUSCULAR HGB CONC 34 g/dL (31-37); MEAN CORPUSCULAR VOLUME 82 fL (79-100); MONO % 10 % (0-9); NEUT % 59 % (31-73); PLATELET COUNT 311 x10^3/uL (140-400); RED BLOOD COUNT 4.56 x10^6/uL (3.50-5.40); RED CELL DISTRIBUTION WIDTH 14.3 % (11.5-14.5); WHITE BLOOD COUNT 8.7 x10^3/uL (4.0-11.0)
[2016-12-28 04:30] LABS: CALCIUM 7.8 mg/dL (8.5-10.1); CREATININE 0.8 mg/dL (0.6-1.0); GFR 74.7; POTASSIUM 3.3 mmol/L (3.5-5.1)
[2016-12-28 07:00] VITALS: BP 132/89
[2016-12-28] MEDS: PIPERACILLIN/TAZOBACTAM 4.5 GM in IV NORMAL SALINE 100ML 100 ML IV SCH ×2 (08:00→12:00)
[2016-12-28] MEDS: PANTOPRAZOLE 40 MG TABLET.DR. PO SCH (08:57)
[2016-12-28 11:00] VITALS: BP 132/88
[2016-12-28] MEDS ORDERED: POTASSIUM CHLORIDE 20 MEQ TABLET.ER. PO ONE (11:15)
--- NOTE | 2016-12-28 11:37 | PDOC ---
CARDIO Progress Notes Date and Time Date of Service 12/28/2016 Time of Evaluation 1130 Subjective Subjective: No Chest Pain, No shortness of breath, No Palpitations, Other (SINHA much better) Vitals Vitals Vital Signs Date Time Temp Pulse Resp B/P (MAP) Pulse Ox O2 Delivery O2 Flow Rate FiO2 12/28/16 11:00 97.9 77 18 132/88 (103) 94 Room Air 97.9 Weight Weight [ ] Input and Output Intake and Output Intake and Output 12/28/16 07:00 Intake Total 440 ml Output Total 0 ml Balance 440 ml Intake Oral 240 ml IV Total 100 ml Other 100 ml Output Stool Total 0 ml # Voids 1 Laboratory Labs Laboratory Tests Test 12/28/16 03:40 White Blood Count 8.7 x10^3/uL (4.0-11.0) Red Blood Count 4.56 x10^6/uL (3.50-5.40) Hemoglobin 12.9 g/dL (12.0-15.5) Hematocrit 37.5 % (36.0-47.0) Mean Corpuscular Volume 82 fL (79-100) Mean Corpuscular Hemoglobin 28 pg (25-35) Mean Corpuscular Hemoglobin Concent 34 g/dL (31-37) Red Cell Distribution Width 14.3 % (11.5-14.5) Platelet Count 311 x10^3/uL (140-400) Neutrophils (%) (Auto) 59 % (31-73) Lymphocytes (%) (Auto) 25 % (24-48) Monocytes (%) (Auto) 10 % (0-9) Eosinophils (%) (Auto) 5 % (0-3) Basophils (%) (Auto) 1 % (0-3) Neutrophils # (Auto) 5.2 x10^3uL (1.8-7.7) Lymphocytes # (Auto) 2.2 x10^3/uL (1.0-4.8) Monocytes # (Auto) 0.8 x10^3/uL (0.0-1.1) Eosinophils # (Auto) 0.5 x10^3/uL (0.0-0.7) Basophils # (Auto) 0.0 x10^3/uL (0.0-0.2) Sodium Level 141 mmol/L (136-145) Potassium Level 3.3 mmol/L (3.5-5.1) Chloride Level 104 mmol/L (98-107) Carbon Dioxide Level 32 mmol/L (21-32) Anion Gap 5 (6-14) Blood Urea Nitrogen 8 mg/dL (7-20) Creatinine 0.8 mg/dL (0.6-1.0) Estimated GFR (Cockcroft-Gault) 74.7 Glucose Level 142 mg/dL (70-99) Calcium Level 7.8 mg/dL (8.5-10.1) Microbiology Micro Microbiology 12/26/16 Blood Culture - Preliminary, Resulted NO GROWTH AFTER 2 DAYS 12/26/16 Anaerobic/Aerobic Culture, Resulted Pending 12/26/16 Anaerobic Culture Result 1 (BRYCE), Resulted Pending 12/26/16 Aerobic Culture - Preliminary, Resulted 12/26/16 Aerobic Culture Result 1 (BRYCE) - Preliminary, Resulted Physical Exam HEENT: Neck Supple W Full Motion Chest: Symmetric LUNGS: Clear to Auscultation Heart: S1S2, RRR (no tele monitor in place) Abdomen: Soft N/T Extremities: 2+ Dorsalis Pedis, No Edema Neurology: alert, oriented, follow commands Assessment Assessment 1. Elevated troponin: peaked at 0.074. Remains no cardiac symptoms. EF and LV systolic function normal but with subtle but with subtle basal to mid lat wall hypokinesis 2. Chronic SINHA: Better. Caution with triptan which could induced vasopasm. per neuro 3. Hypokalemia: per PCP 4. UTI? hematuria per PCP Recommendations 1. Discussed with primary duplicator punch operator. May DC per cardiac standpoint, consider for outpt MPI 2. Consider start of ECASA 81 mg for primary prevention 3. Discussed f/u importance. MALDONADO ROBERTS APRN Dec 28, 2016 11:37
[2016-12-28] MEDS ORDERED: ASPI-612 PO (11:58)
[2016-12-28] MEDS: VANCOMYCIN PER PHARMACY MC PRN (12:54)
--- NOTE | 2016-12-28 13:20 | PDOC3 ---
Discharge Summary [facility] Date of Admission: Dec 26, 2016 Discharge Date: Dec 28, 2016 Admitting Diagnosis 1. headache, acute on chronic, possible migraine 2.no sepsis, SIRS 3. leukocytosis 4. hypokalemia 5. N/V with diarrhea, gastroenteritis viral infection likely 6. elevated troponin ,reactive likely Problems: Final Diagnosis CONSULTS card neuro Brief Hospital Course Patient is a 56 year old [place] only speaking female presenting to the emergency department for evaluation of multiple complaints including headache and dizziness fatigue nausea vomiting for 1day. Pt speaks [place] citizen, her sone at bedside helped to translate, and ER nurse helped to translate to ERP. Pt started to feel sick with headache at forehead, with N/V yesterday with non bloody and nonbilious emesis, watery diarrhea, mild cough, fever, but T not known. The headache got worse today and came to ER. as per ERP, She says that she feels the room spinning but she is able to ambulate okay in the emergency department to an and from the bathroom. Patient reports that she gets frequent headaches but has never seen a doctor and been diagnosed with a headache disorder. She denies any unilateral weakness numbness tingling vision changes or difficulty speaking. Patient is in no obvious distress with normal vital signs. LP done in ER, CT neg. high WBC, HIGH ESR. DENIES recent travel and sick contact.. denies sob, dysuria or frequency. MRI brain neg. Pt got LP in ER, neg. urine has some blood, but otherwise neg. bcx neg. not very sure if fever , leukocytosis is reactive to gi viral infection. Pt feels good since 2nd day, no N./V, NO diarrhea, WBC normal, all neg cx. dc home with asa as per card. dc time 35min . General: Alert, Cooperative, No acute distress Heart: Regular rate, Normal S1, Normal S2, No murmurs Lungs: Clear Abdomen: Normal bowel sounds, Soft Extremities: No edema, Normal pulses Skin: No rashes Problems: Disposition home CONDITION AT DISCHARGE: Improved Diet regular Scheduled Aspirin (Aspirin Ec), 1 TAB PO DAILY, (Reported) Follow Up pcp in 2 weeks SILVESTRE HARMON MD Dec 28, 2016 13:20
--- NOTE | 2016-12-28 17:10 | PDOC ---
PROGRESS NOTES Assessment Assessment Worsening of chronic headache. Chronic headaches x 2 years. Leukocytosis. Obesity. Has not seen PCP for > 2 years. No evidence of CVA or tumor at the present time. RECOMMENDATIONS/PLAN: Pain control. Treat medical diseases. Weight reduction. See PCP. HISTORY OF THE PRESENT ILLNESS: 56-y-old [place] origin female patient with Hx of chronic headaches for more than 2 years. She has about 8 or more obvious headaches a month in her entire head described as compression and sharp pain lasting for several hours each time after taking OTC to stop pain. She has nausea sometimes but no vomiting. No symptoms of decreased vision, diplopia. ataxia, numbness or weakness. She has not seen PCP for more than 2 years. She stated that her headaches were resolved since 12/27/16. PAST MEDICAL HISTORY: Unknown due to not seen PCP. PAST SURGERY HISTORY: . ALLERGY: Unknown MEDICATIONS: OTC FAMILY HISTORY: Non contributory. SOCIAL HISTORY: Lives with her familt at home. Denies smoking, drinking, and illicit drug use. REVIEW OF SYSTEMS: Constitutional: Obesity. Head: No traumatic brain or head injury. Skin: No edema, or rash. Ear: No infection. Eyes: No vision loss or color blindness. Nose: No bleeding or purulent discharges. Hearing: No hearing decrease. Neck: No injury. Breast: No history of cancer, masses,or discharges. Cardiac: No MS, arrhythmia. Pulmonary: No pneumonia or COPD. GI: No GI ulcer, GI bleeding. Urinary/genital: UTI. Endocrinologic: Obesity. Skeletomuscular: No muscular atrophy, deformity. Neurological: see HP. Psychiatric: Denies drug use/abuse. Otherwise, not [id number] review of systems. PHYSICAL EXAMINATION: General appearance is in subacute distress. HEENT: Normocephalic and nontraumatic. Eyes, nose, ears, and throat are unremarkable. Neck is supple. No lymphadenopathy. No bruits are heard over the carotid artery. No crepitus. Cardiovascular: S1, S2, regular rate and rhythm. Pulmonary: Clear to auscultation bilaterally. Abdomen: Bowel sounds are positive. Abdomen is soft, nontender, and nondistended. Extremities: No rash, lesions, or edema. No restriction of range of motion NEUROLOGICAL EXAMINATION: Alert Oriented to time, place and person. PERRL. EOMI. CN: no focal findings. Muscle tone: within normal. Muscle strength: 5 DTR: 2 Plantar reflex: Flexor response bilaterally Gait: Normal. Sensory exam: no abnormal findings. No cerebellar signs elicited. F-T-N test fine. Objective Objective Vital Signs Date Time Temp Pulse Resp B/P (MAP) Pulse Ox O2 Delivery O2 Flow Rate FiO2 12/28/16 11:00 97.9 77 18 132/88 (103) 94 Room Air 97.9 Intake and Output 12/28/16 07:00 Intake Total 440 ml Output Total 0 ml Balance 440 ml Intake Oral 240 ml IV Total 100 ml Other 100 ml Output Stool Total 0 ml # Voids 1 Vitals Signs Vitals VS - Last 72 Hours, by Label Date Time Temp Pulse Resp B/P (MAP) Pulse Ox O2 Delivery O2 Flow Rate FiO2 12/28/16 11:00 97.9 77 18 132/88 (103) 94 Room Air 97.9 12/28/16 08:00 Room Air 12/28/16 07:00 97.4 80 17 132/89 (103) 94 Room Air 97.4 12/28/16 03:33 98.3 73 20 121/86 (98) 92 Room Air 98.3 12/27/16 23:14 98.3 83 20 132/94 (107) 93 Room Air 98.3 12/27/16 19:00 98.3 86 20 119/77 (91) 93 Room Air 98.3 12/27/16 10:30 Room Air 12/27/16 09:34 Room Air 12/27/16 08:05 Room Air 12/27/16 07:30 98.3 81 18 118/85 (96) 95 Room Air 98.3 Laboratory Laboratory Laboratory Tests Test 12/28/16 03:40 White Blood Count 8.7 x10^3/uL (4.0-11.0) Red Blood Count 4.56 x10^6/uL (3.50-5.40) Hemoglobin 12.9 g/dL (12.0-15.5) Hematocrit 37.5 % (36.0-47.0) Mean Corpuscular Volume 82 fL (79-100) Mean Corpuscular Hemoglobin 28 pg (25-35) Mean Corpuscular Hemoglobin Concent 34 g/dL (31-37) Red Cell Distribution Width 14.3 % (11.5-14.5) Platelet Count 311 x10^3/uL (140-400) Neutrophils (%) (Auto) 59 % (31-73) Lymphocytes (%) (Auto) 25 % (24-48) Monocytes (%) (Auto) 10 % (0-9) Eosinophils (%) (Auto) 5 % (0-3) Basophils (%) (Auto) 1 % (0-3) Neutrophils # (Auto) 5.2 x10^3uL (1.8-7.7) Lymphocytes # (Auto) 2.2 x10^3/uL (1.0-4.8) Monocytes # (Auto) 0.8 x10^3/uL (0.0-1.1) Eosinophils # (Auto) 0.5 x10^3/uL (0.0-0.7) Basophils # (Auto) 0.0 x10^3/uL (0.0-0.2) Sodium Level 141 mmol/L (136-145) Potassium Level 3.3 mmol/L (3.5-5.1) Chloride Level 104 mmol/L (98-107) Carbon Dioxide Level 32 mmol/L (21-32) Anion Gap 5 (6-14) Blood Urea Nitrogen 8 mg/dL (7-20) Creatinine 0.8 mg/dL (0.6-1.0) Estimated GFR (Cockcroft-Gault) 74.7 Glucose Level 142 mg/dL (70-99) Calcium Level 7.8 mg/dL (8.5-10.1) Microbiology 12/26/16 Blood Culture - Preliminary, Resulted NO GROWTH AFTER 2 DAYS 12/26/16 Anaerobic/Aerobic Culture - Preliminary, Resulted 12/26/16 Anaerobic Culture Result 1 (BRYCE) - Preliminary, Resulted 12/26/16 Aerobic Culture - Preliminary, Resulted 12/26/16 Aerobic Culture Result 1 (BRYCE) - Preliminary, Resulted Medication Medications Current Medications Potassium Chloride (Klor-Con) 40 meq 1X ONCE PO Last administered on t 12:47; Start 12/28/16 at 11:15; Stop 12/28/16 at 11:16; Status DC Vancomycin HCl 1 each 1X ONCE MC ; Start 12/28/16 at 15:30; Stop 12/28/16 at 15 :30; Status DC Comment Review of Relevant I have reviewed the following items kavitha (where applicable) has been applied. CORNELL LIVINGSTON MD Dec 28, 2016 17:10
== END 2016-12-28 13:15 | disposition home or self-care (01) | DRG 103 ==
LOC: ER 08:23 → ED HOLD 10:28 → 2 SOUTH 12:43 → 5 NORTH 12-27 16:19
PROVIDERS: ADMIT Internal Medicine; ATTEND Internal Medicine
PROC: 009U3ZX Drainage of Spinal Canal, Percutaneous Approach, Diagnostic (ICD-10-PCS; principal; 2016-12-26)
DX: G43.909 Migraine, unspecified, not intractable, without status migrainosus (principal); R65.10 Systemic inflammatory response syndrome (SIRS) of non-infectious origin without acute organ dysfunction; A08.4 Viral intestinal infection, unspecified; E66.9 Obesity, unspecified; E87.6 Hypokalemia
CPT/HCPCS: 36415; 62270; 70450; 70553; 71010; 80048; 80053; 80329; 81001; 81025; 82550; 82553; 82945; 83605; 83735; 83880; 84145; 84157; 84443; 84484; 85027; 85610; 85651; 85730; 86140; 87040; 87045; 87071; 87075; 87205; 87324; 89051; 93005; 93306; 96365; 96375; G0480; G0481; J0696; J0780; J1200; J1650; J1885; J2250; J2270; J2405; J2543; J3370; J7030; J7040; J7050; J8597; 99285-25; A9585